=== PATIENT | female | born 1985 | race Caucasian/White ===

== ENCOUNTER 2017-05-28 10:00 | Outpatient (RCR) | payer SELFPAY ==
--- NOTE | 2017-05-01 10:06 | PT INITIAL EVALUATION ---
MEDICAL DIAGNOSIS: Appendiceal Adenocarcinoma TREATMENT DIAGNOSIS: Appendiceal Adenocarcinoma DATE OF ONSET: 04/30/17 SUBJECTIVE: George is a 32 year-old female presenting to oncology rehabilitation following recent change in chemotherapy regimen including Avastin and Irinotecan s/p recent hospitalization. Following discharge from the hospital pt reports that she has been doing much better and has started exercising again and going back to work. Pt reports that she has been doing body weight squats and lifting light weights to maintain fitness. She has also been performing abdominal correction techniques as instructed for diastasis recti following her last surgical intervention. Pt is accompanied by her parents for education and Nurse and Pre Sales Technical Consultant are present. Pt currently reports no pain currently but previously had low back pain onset following hospitalization and decreased activity level. 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 Knee : flexion/ext: B 5/5 Palpation: Pt has a >2cm diastasis recti formation 3 cm above umbilicus Mobility: ECOG Performance Status: Grade 0 Other Objective Findings: FACT-G: PWB: , SWB: , EWB: , FWB: , Total: 100/108 ASSESSMENT: George shows signs and symptoms of diastasis recti following abdominal surgery, but is otherwise doing well at this time with the initiation of new chemotherapy regime for diagnosis of Appendiceal Adenocarcinoma. Physical therapy is indicated for this patient on a monthly basis for regular screening for any changes in condition and modifications of HEP for maintenance of functional status. Short Term Goals In 2 MO pt will maintain FACT-G score of 90 or greater indicating maintenance of well-being with ongoing oncological treatment. In 2 MO pt will maintain ECOG performance status of grade 2 or less for improved outcomes with ongoing oncological intervention and functional mobility. In 4 MO pt will maintain strength in B LE of 4/5 or greater for maintenance of functional status with recreational activities and ADL's. In 4 MO pt will maintain FACT-G score of 90 or greater indicating maintenance of well-being with ongoing oncological treatment. In 4 MO pt will maintain ECOG performance status of grade 2 or less for improved outcomes with ongoing oncological intervention and functional mobility. Patient's Goals Maintain function with ongoing oncological treatment. PLAN: Patient to be seen for Manual Therapy/STM/MET Strengthening/condition Ice/Heat Range of Motion Spinal Stabilization Ultrasound Stretching Iontophoresis Neuromuscular Re-ed Closed Chain Program Electrical Stim Posture/Body mechanics Gait Trg/Balance Trg Biofeedback Home Exercise Program Mech./Manual Traction Therapeutic Activities Pelvic Floor 1x/MO for 4 Months If you have any questions, comments, or concerns about this report or plan, please contact me at . Thank you, Kaitlyn Howe, PT, DPT, CLT MTDD
[~2017-05-28 10:00] MED LIST: CHOL500050 PO; DEX4 PO; DIA5 PO; DOXY25TA54 PO; FLUO-176 PO; FLUO-177 PO; HYDR-4309 PO; IBUP-56 PO; LIDO30CR3 TP; LOPE2CAP15; LORA-1455 PO; ONDA4TAB97 PO; ONDA8TAB94 PO; PRED20TA6 PO; PROC10TA4 PO; SCOT TD; SUMA25TA26 PO
--- NOTE | 2017-05-29 16:23 | PT PLAN OF CARE ---
Physician: FRANCISCO Lock Patient is being seen: 1x/MO Therapist: Kaitlyn Howe, PT, DPT, CLT Medical Diagnosis: Appendiceal Adenocarcinoma Treatment Diagnosis: Appendiceal Adenocarcinoma Date of Onset: 04/30/17 Date of Initial Evaluation: 04/30/17 Date patient was last seen: 05/28/17 Number of treatments: 2 Number of cancellations/No shows: 0 INTERVENTIONS: Manual Therapy/STM/MET Strengthening/condition Ice/Heat Range of Motion Spinal Stabilization Ultrasound Stretching Iontophoresis Neuromuscular Re-ed Closed Chain Program Electrical Stim Posture/Body mechanics Gait Trg/Balance Trg Biofeedback Home Exercise Program Mech./Manual Traction Therapeutic Activities Pelvic Floor GOALS: In 2 MO pt will maintain FACT-G score of 90 or greater indicating maintenance of well-being with ongoing oncological treatment. In 2 MO pt will maintain ECOG performance status of grade 2 or less for improved outcomes with ongoing oncological intervention and functional mobility. In 4 MO pt will maintain strength in B LE of 4/5 or greater for maintenance of functional status with recreational activities and ADL's. In 4 MO pt will maintain FACT-G score of 90 or greater indicating maintenance of well-being with ongoing oncological treatment. In 4 MO pt will maintain ECOG performance status of grade 2 or less for improved outcomes with ongoing oncological intervention and functional mobility. PATIENT'S GOAL: Maintain function with ongoing oncological treatment. Status of Patient's Goals: In Progress Patient Compliance: Excellent Prognosis: Good Reasons for continuing therapy: George shows good maintenance of activity level with ongoing oncological intervention with minimal side-effects. Pt previous back pain is now absent with only lingering stiffness which was reduced with PT intervention. Pt shows good progress with abdominal strengthening program with improved pelvic floor and transverse abdominis activation resulting in decreased pain with lifting and exercise. Further PT to continue to monitor for side-effects and further progress patient to return to prior level of function. ROM: LE ROM WFL Strength: LE MMT: Hip: Flexion: B 5/5, Ext: L 4+/5, R 4/5, Abd/Add: B 5/5. Knee : flexion/ext: B 5/5 Palpation: Pt has a >2cm diastasis recti formation 3 cm above umbilicus Special Tests: FACT-G (Eval): PWB: , SWB: , EWB: , FWB: , Total: 100/108 FACT-G (05/28/17): PWB: , SWB: , EWB: , FWB: , Total: 100 /108 Mobility: ECOG Performance Status: Grade 0 If you have any questions or concerns, please feel free to contact me at . Thank you, Kaitlyn Howe, PT, DPT, CLT MTDD
== END 2017-05-28 18:00 | disposition home or self-care (01) ==
LOC: PT 10:00
PROVIDERS: ATTEND Internal Medicine Medical Oncology
DX: C7A.020 Malignant carcinoid tumor of the appendix (principal)
CPT/HCPCS: 97162

== ENCOUNTER 2017-06-13 10:01 | Emergency (ER) | payer SELFPAY ==
--- NOTE | 2017-06-13 10:08 | ER Report ---
History and Physical Time Seen By MD: 10:02 HPI/LION CHIEF COMPLAINT: Low back pain/ leg weakness HISTORY OF PRESENT ILLNESS: The patient is a 32-year-old female with history of adenocarcinoma currently undergoing chemotherapy last chemotherapy was this past Friday. Last night the patient woke with some lower back discomfort and was unable to get comfortable to fall back asleep. She also noticed some pain down both the left and right thighs. She denies any problems with urinary incontinence or retention. She is able to ambulate. She denies any saddle anesthesia. There is no history of trauma. Patient denies any fevers or chills. REVIEW OF SYSTEMS: Constitutional: No fever, no chills. Gastrointestinal: No abdominal pain, no vomiting. Genitourinary: No hematuria. Musculoskeletal: Lower back pain, numbness and pain down posterior aspect of both thighs. Skin: No rashes. Neurological: No headache. Allergies: Coded Allergies: No Known Drug Allergies (Unverified , 10/09/15) Home Meds Reported Medications Loperamide HCl (Imodium A-D) 2 Mg Capsule Take 4 mg with first watery stool; then take 2 mg every 2 hours during the day and 4 mg every 4 hours at night until no bowel movement 04/30/17 Sumatriptan Succinate (IMITREX) 25 Mg Tablet, 25 MG PO ONCE Y for MIGRAINE 04/30/17 Doxylamine Succinate (UNISOM SLEEP AID) 25 Mg Tablet, 25 MG PO HS Y for INSOMNIA 04/30/17 Diazepam (VALIUM) 5 Mg Tablet, 5 MG PO QHS Y for INSOMNIA, #5 TAB 04/30/17 Lorazepam (ATIVAN) 0.5 Mg Tablet, 0.5 MG PO Q4-6H Y for NAUSEA 04/30/17 Ondansetron Hcl (ZOFRAN) 4 Mg Tablet, 4 MG PO Q8H Y for NAUSEA, TAB 04/30/17 Prochlorperazine Maleate (Compazine) 10 Mg Tablet, 10 MG PO Q6H Y for NAUSEA 04/30/17 Past Medical/Surgical History Patient has an extensive oncology history. She was diagnosed with appendiceal adenocarcinoma. She initially presented on 09/03/2006 with a 6 week history of abdominal bloating, discomfort distention lack of appetite and loose stools. On September [address] scan of the abdomen and pelvis that showed a 12 x 15 x 21 cm complex low-attenuation mass within the lower anterior abdomen and pelvis. 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 CT scan October 11 showed no metastatic disease above the diaphragm at that time. But she did have significant abdominal ascites. October 3012/11/2016. FOLFOX 4 cycles. 12/16/2016 CT of the chest showed scattered pulmonary micronodules. Patient was admitted 02/19/2017 for nits abdominal abscess and status post drain placement. 03/04/2017 patient underwent ileostomy takedown. In CT scan on 04/10/2017 revealed numerous micronodules throughout the lungs. There are development of several Micronodules measuring up to 5 mm. Hx Smoking: No Smoking Status: Never Smoker Hx Alcohol Use: Yes Constitutional Vital Sign - Last 24 Hours 06/13/17 06/13/17 06/13/17 06/13/17 10:07 10:26 10:26 10:27 Temp 98.3 Pulse 79 79 86 Resp 16 B/P (MAP) 116/69 116/69 (85) 124/81 (95) 123/80 (94) Pulse Ox 95 97 96 96 O2 Delivery Room Air Room Air Room Air Room Air 06/13/17 06/13/17 10:40 10:46 Pulse 71 Resp 21 B/P (MAP) 105/83 (90) Pulse Ox 97 Physical Exam General/Constitutional: Patient is awake, alert, nontoxic and in no acute respiratory distress. Head: Normocephalic and atraumatic. Abdomen: Soft, nontender, no guarding or peritoneal signs. Extremities: No gross deformities, No peripheral cyanosis. Able to move all 4 extremities. Patient has 5 out of 5 motor strength with dorsiflexion and plantar flexion of both feet. She has 5 out of 5 strength with extension and retraction of the knee. She also has 5 out of 5 strength with hip flexion bilaterally. Neuro: Alert and oriented X3, Patient has normal gait. Skin: No rashes, skin is warm dry and well perfused. Medical Decision Making Data Points Laboratory Hematology Test 06/13/17 10:07 Urine Color Yellow Urine Clarity Clear Urine pH 5.0 pH (4.8-9.5) Urine Specific [place] 1.021 Urine Protein Negative mg/dL (NEGATIVE) Urine Glucose (UA) Negative mg/dL (NEGATIVE) Urine Ketones Negative mg/dL (NEGATIVE) Urine Blood Negative (NEGATIVE) Urine Nitrite Negative (NEGATIVE) Urine Bilirubin Negative (NEGATIVE) Urine Urobilinogen Negative mg/dL (0.2-1.9) Urine Leukocyte Esterase Trace (NEGATIVE) Urine RBC None /HPF (0-2/HPF) Urine WBC 2 /HPF (0-5/HPF) Urine Squamous Epithelial Cells Many /LPF (</=FEW) Urine Bacteria Negative /HPF (NONE-FEW) Urine Mucus None /HPF (NONE-FEW) Chemistry Test 06/13/17 10:07 Urine Color Yellow Urine Clarity Clear Urine pH 5.0 pH (4.8-9.5) Urine Specific [place] 1.021 Urine Protein Negative mg/dL (NEGATIVE) Urine Glucose (UA) Negative mg/dL (NEGATIVE) Urine Ketones Negative mg/dL (NEGATIVE) Urine Blood Negative (NEGATIVE) Urine Nitrite Negative (NEGATIVE) Urine Bilirubin Negative (NEGATIVE) Urine Urobilinogen Negative mg/dL (0.2-1.9) Urine Leukocyte Esterase Trace (NEGATIVE) Urine RBC None /HPF (0-2/HPF) Urine WBC 2 /HPF (0-5/HPF) Urine Squamous Epithelial Cells Many /LPF (</=FEW) Urine Bacteria Negative /HPF (NONE-FEW) Urine Mucus None /HPF (NONE-FEW) Urinalysis Test 06/13/17 10:07 Urine Color Yellow Urine Clarity Clear Urine pH 5.0 pH (4.8-9.5) Urine Specific [place] 1.021 Urine Protein Negative mg/dL (NEGATIVE) Urine Glucose (UA) Negative mg/dL (NEGATIVE) Urine Ketones Negative mg/dL (NEGATIVE) Urine Blood Negative (NEGATIVE) Urine Nitrite Negative (NEGATIVE) Urine Bilirubin Negative (NEGATIVE) Urine Urobilinogen Negative mg/dL (0.2-1.9) Urine Leukocyte Esterase Trace (NEGATIVE) Urine RBC None /HPF (0-2/HPF) Urine WBC 2 /HPF (0-5/HPF) Urine Squamous Epithelial Cells Many /LPF (</=FEW) Urine Bacteria Negative /HPF (NONE-FEW) Urine Mucus None /HPF (NONE-FEW) EKG/Imaging Imaging FACILITY: [facility] PATIENT NAME: George Alejandro : 1985 MR: [id number] V: [id number] EXAM DATE: ORDERING PHYSICIAN: DOUG LEE TECHNOLOGIST: Location: [facility] Patient: George Alejandro : 1985 Visit/Account:[id number] Date of Sevice: 06/13/2017 EXAMINATION: L SPINE W W/O CONTRAST INDICATION: Pain, breast cancer COMPARISON: CT April 10, 2017 TECHNIQUE: Multiplane MR imaging was performed through the lumbar spine without and with contrast. 15 ml multihance injected. FINDINGS: Vertebral body height: Normal vertebral body heights. Conus position/signal: Normal Marrow signal: Vertebral body metastases at T11, L1, L2, L3 and within the mid to upper sacrum. Small metastasis within the right L4 pedicle and articular pillar. The L2 vertebral body metastasis extends into the right pedicle and articular pillar. The L2 vertebral body is nearly completely filled with a metastasis. The remaining vertebral body metastases are smaller. The sacral metastasis measures up to 7.5 cm craniocaudad by 9.6 cm transverse.. Patchy enhancement within some of these metastases. No soft tissue extension into the canal. Bilateral iliac bone small metastases. Extraspinal structures including psoas muscles/paraspinal soft tissues: Bilateral renal pelvis distention. Other: Small T11-12 disc protrusion contacts the anterior aspect of the cord and results in mild canal narrowing. L1-2: Normal L2-3: Normal. L3-4: Normal L4-5: Mild right foraminal narrowing, otherwise normal. L5 S1: Normal IMPRESSION: 1. Several new metastases involving multiple thoracic and lumbar vertebral bodies and posterior elements, the sacrum and bilateral iliac bones. The largest lumbar vertebral body metastasis is at L2 where the vertebral body is nearly completely filled. The sacral metastasis measures up to 9.6 cm transverse dimension. No malignant soft tissue extension into the canal. No vertebral body wedge compression deformities. 2. Mild T11-12 canal narrowing secondary to small disc protrusion which is partially calcified based on prior CT. Report Dictated By: Yinka Hill MD at 06/13/2017 1:16 PM Report E-Signed By: Yinka Hill MD at 06/13/2017 1:31 PM [id number] FACILITY: [facility] PATIENT NAME: George Alejandro : 1985 MR: [id number] V: [id number] EXAM DATE: ORDERING PHYSICIAN: DOUG LEE TECHNOLOGIST: Location: [facility] Patient: George Alejandro : 1985 Visit/Account:[id number] Date of Sevice: 06/13/2017 PELVIS INDICATION: Pain. History of cancer. COMPARISON: None available FINDINGS: No evidence of fracture, dislocation, or acute osseous abnormality of the bones of the pelvis. No significant degenerative changes. No aggressive osseous lesions identified. Suture material identified within the bilateral lower abdomen. IMPRESSION: 1. No acute osseous abnormality of the pelvis Report Dictated By: Yinka Kimball MD at 06/13/2017 1:22 PM Report E-Signed By: Yinka Kimball MD at 06/13/2017 1:23 PM WSN:[id number] FACILITY: [facility] PATIENT NAME: George Alejandro : 1985 MR: [id number] V: [id number] EXAM DATE: [id number] ORDERING PHYSICIAN: DOUG LEE TECHNOLOGIST: Location: [facility] Patient: George Alejandro : 1985 Visit/Account:[id number] Date of Sevice: 06/13/2017 Lumbar spine Indication: Back pain. Comparison: None available FINDINGS: 4 views of the lumbar spine were obtained. There are 5 lumbar type vertebral bodies. There is no acute osseous or acute alignment abnormality. No evidence of spondylolisthesis or spondylolysis. The vertebral body heights appear well-maintained. IMPRESSION: 1. No acute osseous or acute alignment abnormality of the lumbar spine. Report Dictated By: Yinka Kimball MD at 06/13/2017 1:15 PM Report E-Signed By: Yinka Kimball MD at 06/13/2017 1:22 PM WSN:[id number] ED Course/Re-evaluation ED Course Post void residual was approximately 58 mL. This seems higher than it should be. This could be related to the patient's multiple abdominal surgeries. However we will perform in addition to x-ray of lumbar spine and pelvis an MRI of the lumbar spine. He did attempt to talk to the patient's oncologist Dr. Curry by contacting him at [phone] I did leave a message but did not receive response at this time Re-evaluation 06/13/2017 1:54:06 pm unfortunately MRI demonstrates multiple metastatic lesions to the thoracic lumbar sacral spine along with the iliac wings. This information was relayed to the patient and she was given a copy of her MRI report. I did once again try to get in touch with Dr. Curry at [phone]. There was no response but I did leave a voicemail updating Dr. Curry on the MRI findings. I instructed the patient that she should probably start taking her pain medication that she was prescribed for comfort at nighttime and that she should follow-up with Dr. Curry as soon as possible. Decision to Disposition Date: June 13, 2017 Decision to Disposition Time: 13:55 Depart Departure Latest Vital Signs Vital Signs Date Time Temp Pulse Resp B/P (MAP) Pulse Ox O2 Delivery O2 Flow Rate FiO2 06/13/17 10:46 71 21 97 06/13/17 10:40 105/83 (90) 06/13/17 10:27 Room Air 06/13/17 10:07 98.3 Impression: Primary Impression: Metastasis to bone Condition: Condition Unchanged Disposition: HOME OR SELF-CARE Referrals: ZAINAB LAURENT DNP, SUSTAINABILITY COORDINATOR-BC (PCP) ANSLEY CURRY MD Patient Instructions: Bone Metastasis (ED) Additional Instructions: Take your pain medicine as prescribed as needed for pain. Call and follow up with DOUG Diaz MD June 13, 2017 10:08
[2017-06-13 10:40] VITALS: BP 105/83
[2017-06-13] MEDS ORDERED: GADOBENATE 529MG/1ML 15ML VIAL IVP ONE (11:31)
[2017-06-13] MEDS ORDERED: NS(*) 0.9% 500 ML BAG 500 ML IV PRN (13:00)
--- NOTE | 2017-06-13 13:27 | RADIOLOGY IMAGING REPORT ---
FACILITY: [facility] PATIENT NAME: George Alejandro : 1985 MR: [id number] V: [id number] EXAM DATE: ORDERING PHYSICIAN: DOUG LEE TECHNOLOGIST: Location: [facility] [place] Patient: George Alejandro : 1985 Visit/Account:[id number] Date of Sevice: 06/13/2017 Lumbar spine Indication: Back pain. Comparison: None available FINDINGS: 4 views of the lumbar spine were obtained. There are 5 lumbar type vertebral bodies. There is no acute osseous or acute alignment abnormality. No evidence of spondylolisthesis or spondylolysis. The vertebral body heights appear well-maintained. IMPRESSION: 1. No acute osseous or acute alignment abnormality of the lumbar spine. Report Dictated By: Yinka Kimball MD at 06/13/2017 1:15 PM Report E-Signed By: Yinka Kimball MD at 06/13/2017 1:22 PM WSN:[id number]
--- NOTE | 2017-06-13 13:28 | RADIOLOGY IMAGING REPORT ---
FACILITY: [facility] PATIENT NAME: George Alejandro : 1985 MR: [id number] V: [id number] EXAM DATE: ORDERING PHYSICIAN: DOUG LEE TECHNOLOGIST: Location: [facility] [place] Patient: George Alejandro : 1985 Visit/Account:[id number] Date of Sevice: 06/13/2017 PELVIS INDICATION: Pain. History of cancer. COMPARISON: None available FINDINGS: No evidence of fracture, dislocation, or acute osseous abnormality of the bones of the pelvis. No significant degenerative changes. No aggressive osseous lesions identified. Suture material identified within the bilateral lower abdomen. IMPRESSION: 1. No acute osseous abnormality of the pelvis Report Dictated By: Yinka Kimball MD at 06/13/2017 1:22 PM Report E-Signed By: Yinka Kimball MD at 06/13/2017 1:23 PM WSN:[id number]
--- NOTE | 2017-06-13 13:35 | RADIOLOGY IMAGING REPORT ---
FACILITY: [facility] [place] PATIENT NAME: George Alejandro : 1985 MR: [id number] V: [id number] EXAM DATE: ORDERING PHYSICIAN: DOUG LEE TECHNOLOGIST: [facility] Patient: George Alejandro : 1985 Visit/Account:[id number] Date of Sevice: 06/13/2017 EXAMINATION: L SPINE W W/O CONTRAST INDICATION: Pain, breast cancer COMPARISON: CT April 10, 2017 TECHNIQUE: Multiplane MR imaging was performed through the lumbar spine without and with contrast. 1 5 ml multihance injected. FINDINGS: Vertebral body height: Normal vertebral body heights. Conus position/signal: Normal Marrow signal: Vertebral body metastases at T11, L1, L2, L3 and within the mid to upper sacrum. Smal l metastasis within the right L4 pedicle and articular pillar. The L2 vertebral body metastasis exte nds into the right pedicle and articular pillar. The L2 vertebral body is nearly completely filled w ith a metastasis. The remaining vertebral body metastases are smaller. The sacral metastasis measur es up to 7.5 cm craniocaudad by 9.6 cm transverse.. Patchy enhancement within some of these metastas es. No soft tissue extension into the canal. Bilateral iliac bone small metastases. Extraspinal structures including psoas muscles/paraspinal soft tissues: Bilateral renal pelvis disten tion. Other: Small T11-12 disc protrusion contacts the anterior aspect of the cord and results in mild lonny l narrowing. L1-2: Normal L2-3: Normal. L3-4: Normal L4-5: Mild right foraminal narrowing, otherwise normal. L5 S1: Normal IMPRESSION: 1. Several new metastases involving multiple thoracic and lumbar vertebral bodies and posterior eagle ents, the sacrum and bilateral iliac bones. The largest lumbar vertebral body metastasis is at L2 wh ere the vertebral body is nearly completely filled. The sacral metastasis measures up to 9.6 cm transverse dimension. No malignant soft tissue extension into the canal. No vertebral body wedge compression deformities. 2. Mild T11-12 canal narrowing secondary to small disc protrusion which is partially calcified based on prior CT. Report Dictated By: Yinka Hill MD at 06/13/2017 1:16 PM Report E-Signed By: Yinka Hill MD at 06/13/2017 1:31 PM WSN:[id number]
[2017-06-13] MEDS ORDERED: HEPARIN FLSH (PORT) 500 UN/5ML IVP PRN (14:05)
== END 2017-06-13 14:14 | disposition home or self-care (01) ==
LOC: ER 10:04
DX: C79.51 Secondary malignant neoplasm of bone (principal); C18.1 Malignant neoplasm of appendix
CPT/HCPCS: 72120; 72158; 72170; 81001; 96360; 99284; A9577; J1642; J7040

== ENCOUNTER 2017-06-18 09:15 | Outpatient (RCR) | payer SELFPAY ==
--- NOTE | 2017-02-18 09:56 | Oncology Note ---
Patient called the clinic to report that she is up and [facility] and over a week ago experience flulike symptoms with nausea and vomiting and loose stools in her ostomy and a high fever. Symptoms improved for approximately 2 days and then recurred with a fever. She has been able to eat and drink without difficulty for the last 2 days and her stools have become thicker but she continues to have a fever. Other family members were sick with flulike symptoms as well. She does have a provider that she can see up in [facility]. I have recommended that she go in and see this provider. I feel that she probably needs influenza testing completed as well as a CBC and a CMP and possibly a chest x-ray. Patient may have a bacterial infection. She recently had debulking surgery. She verbalized understanding and will call and make an appointment or go into the emergency room. This provider may call me if he has questions. PAULINO SHULTZ-LENCHO, ONC Feb 18, 2017 09:56
[2017-03-25 13:27] VITALS: BP 113/81
[2017-03-25] MEDS: HEPARIN FLSH (PORT) 500 UN/5ML IVP PRN (13:42)
[2017-03-25] MEDS: LIDOCAINE/SOD BICARB 8.4% SYR ID PRN (13:42)
--- NOTE | 2017-04-08 14:30 | Pharmacy Note ---
Pharmacy Note Date Provider Notified: Apr 09, 2017 Note: Splenectomy Vaccine Review: Initial Splenectomy Vaccines (at least 2 weeks before splenectomy or at least 2 weeks following): -Prevnar 13 -- given 10/28/16 (at [facility]) -HIB --- ACTHib -- given 12/18/16 ([facility]) -Bexsero (Meningococcal B) --given 01/14/17 ([facility]) Booster Vaccines: -Bexsero (Meningococcal B) --- (at least 4 weeks after first Bexsero) -Menactra (Meningococcal) -- (at least 4 weeks after Prevnar 13) --- given 12/18 at ([facility]) -PPSV23 (Pneumococcal) --- (at least 8 weeks after Prevnar 13) --- given at ([facility]) -Menactra (Meningococcal) -- (at least 8 weeks after first Menactra) Lather Apprentice Vaccines: Menactra (meningococcal) - once every 5 years thereafter PPSV23 once every 5 years, 2 doses below age 65 plus one dose after age 65) Vaccines Due at Next Visit: 2nd Bexsero 0.5mL IM once 2nd Menactra 0.5mL IM once Fabiola Noble, PharmD, BCOP FABIOLA NOBLE Apr 08, 2017 14:30
[2017-04-09 13:00] VITALS: BP 120/75
[2017-04-09 14:34] LABS: PLATELET COUNT, AUTOMATED 435 K/uL (150-450)
--- NOTE | 2017-04-09 19:36 | ONCOLOGY FOLLOW UP NOTE ---
EVENT DATE: April 09, 2017 REASON FOR FOLLOWUP 1. Appendiceal adenocarcinoma, peritoneal carcinomatosis, recurrent ascites. 2. Status post surgical debulking and HIPEC therapy. INTERIM HISTORY George returns to clinic for a follow-up visit today. She is accompanied by her mother. For the most part, she reports that things are going pretty well. She does have some ongoing fatigue and bowel irregularity. She has also been experiencing more frequent migraine headaches. Her appetite is good, and her weight has stabilized, although she did expectedly lose some weight with her surgery and HIPEC. She denies fever. She reports no new urinary symptoms. She has had no skin changes. She is here today to discuss plans for chemotherapy now that she has recovered from her surgery and HIPEC. She has had her ostomy reversed. REVIEW OF SYSTEMS Otherwise negative, and all systems were reviewed. ONCOLOGY HISTORY 1. Appendiceal adenocarcinoma. a. Initial presentation on September 03, 2016 with a six-week history of abdominal discomfort, bloating, distention, lack of appetite, and loose stools. b. On September 06, 2016, CT scan of abdomen and pelvis shows a 12 x 15 x 21 cm complex low attenuation mass within the low anterior abdomen and pelvis, and 5 x 7 x 6 cm mass in the posterior midline pelvis; associated with moderately large volume of ascites and left upper quadrant omental caking. 2. Patient is referred to Dr. Yepez at [facility]. a. September 12, 2016: Patient undergoes radical carcinoma debulking per right salpingo-oophorectomy and left ovarian cystectomy, large bowel tumor excision and excision of pelvic floor tumor including aortic bifurcation tumor nodule, total omentectomy, right hemicolectomy, exploratory laparotomy, and lysis of adhesions. b. 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 Biopsy of the tumor nodule at the aortic bifurcation was also positive for metastatic adenocarcinoma. Omentum was involved with metastatic adenocarcinoma. The right hemicolectomy specimen, including appendix, showed evidence of invasive poorly differentiated adenocarcinoma arising from the appendiceal orifice and showing full-thickness invasion of the bowel wall with involvement of cirrhosis. Six of 17 lymph nodes positive for metastatic adenocarcinoma. c. October 11, 2016: CT chest, abdomen and pelvis shows no evidence for metastatic disease above the diaphragm. Postoperative changes were noted from midline laparotomy and appendectomy. No evidence of postoperative complication , bowel obstruction, or bowel leak. Large volume ascites with omental thickening and peritoneal carcinomatosis was noted. Complexity of ascites was diminished, presumably from debulking. Findings potentially consistent with pseudomyxoma peritonei. d. October 30 through December 11, 2016: FOLFOX times four cycles. e. December 16, 2016, CT of chest, abdomen and pelvis: Multiseptate cystic lesion in the pelvis, increased in size since prior exam. Large volume complex ascites and omental thickening/caking otherwise unchanged. Apparent wall thickening of the terminal ileum. Borderline prominent left axillary lymph node , unchanged. Scattered pulmonary micronodules measuring up to 2-3 mm, present prior and unchanged. f. January 06, 2017: Patient undergoes diagnostic laparoscopy, exploratory laparotomy, lysis of adhesions, radical abdominal tumor debulking (including splenectomy, cholecystectomy, wedge gastrectomy, partial resection of right diaphragm, multiple hepatic capsulectomies, mobilization of splenic flexure, segmental resection of splenic flexure of colon, low anterior resection, total abdominal hysterectomy with left salpingo-oophorectomy, bilateral ureterolysis, placement of peritoneal catheters for intraperitoneal chemotherapy). Patient receives hyperthermic intraperitoneal and right intrathoracic chemotherapy with mitomycin C. She undergoes primary coloproctostomy, primary colocolostomy, and diverting loop ileostomy. Pathology reveals evidence of mucinous adenocarcinoma involving all specimens including multiple peritonectomies, left external iliac lymph node and right external iliac lymph node. g. February 19, 2017: Patient is admitted for intraabdominal abscess, status post drain placement and antibiotics. She was subsequently discharged. h. March 04, 2017: Patient undergoes ileostomy takedown. PAST MEDICAL HISTORY 1. Appendiceal adenocarcinoma, as above. 2. Depression, diagnosed in April of 2016. CURRENT MEDICATIONS 1. Fluoxetine 20 mg p.o. daily. 2. Claritin 10 mg p.o. daily. SOCIAL HISTORY She drinks only occasional alcohol. She has never smoked cigarettes. There is no history of illicit drug use. 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 VITAL SIGNS Temperature is 97.1, blood pressure 120/75, heart rate is 65, respirations 16, oxygen saturation is 98% on room air. PHYSICAL EXAMINATION GENERAL: Patient is alert and oriented times three, in no apparent distress sitting in the exam room chair. She is in good spirits, and quite interactive. HEENT: Exam reveals anicteric sclerae. No significant oropharyngeal lesions. NEUROLOGIC: Exam is grossly nonfocal and her gait is normal. EXTREMITIES: Exam reveals no edema, clubbing or cyanosis. SKIN: Exam reveals no concerning rash or lesions. LABORATORY STUDIES Pending today. IMAGING Pending today. ASSESSMENT AND PLAN 1. Appendiceal adenocarcinoma, peritoneal carcinomatosis, status post debulking and HIPEC. I had a good visit with George and her mom today. Overall , George seems to be remarkably well. She does have some ongoing fatigue, but she has no concerning abdominal symptoms today. Her appetite and nutrition seem to be improving steadily, and her weight has stabilized. She is having some migraine headaches. We spent time today discussing next steps. I have reviewed her records from the [facility] ([place], [place]) in detail. The recommendation has been made for her to begin irinotecan with or without bevacizumab, as the response to initial FOLFOX chemotherapy was not everything that we had expected. We will try to avoid infusional 5- fluorouracil. We spent time today discussing irinotecan, including potential risks and toxicities. We also discussed bevacizumab in detail. George is open minded to receiving both medications, and I do want her to go through treatment education as soon as possible. I would want to know from Dr. Jerez that it is okay at this point to have her begin Avastin, as it would be possible to initiate irinotecan by itself, and to add bevacizumab later. In addition, George is planning a trip to [facility], and she would like to start her chemotherapy when she returns. I certainly think this is reasonable. I will plan to see her back in my clinic in about one month, or sooner if there are questions or concerns. Before she gets started on her irinotecan/bevacizumab chemotherapy, we will have her go for a new baseline CT scan of the chest, abdomen and pelvis, and she will go to the lab today to have repeat labs drawn, to include CEA and CA 19-9. 2. Migraine headache. As discussed, I will be reviewing her situation with Pharmacy here, and we will consider a migraine medication that would be reasonable with all of her upcoming medication changes. I spent a total of 30 minutes of time face to face with the patient and her mother today, and 25 minutes of this was spent in direct counseling and coordination of care. [facility]ADISE
[2017-04-10 11:37] VITALS: BP 127/75
--- NOTE | 2017-04-10 16:48 | RADIOLOGY IMAGING REPORT ---
FACILITY: [facility] [place] PATIENT NAME: George Alejandro : 1985 MR: [id number] V: [id number] EXAM DATE: ORDERING PHYSICIAN: ANSLEY CURRY TECHNOLOGIST: Location: [facility] [place] Patient: George Alejandro : 1985 Visit/Account:[id number] Date of Sevice: 04/10/2017 CHEST/AB/PELV W/WO CONTRAST HISTORY: Six month follow-up of appendix surgery ADDITIONAL HISTORY: None. TECHNIQUE: Pre and post administration of IV contrast axial images acquired through the chest abdome n and pelvis during the portal venous phase. Coronal and sagittal reformatting was also performed. D ose Lowering Technique One of the following dose optimization techniques was utilized in the performance of this exam: Autom ated exposure control; adjustment of the mA and/or kV according to the patient's size; or use of an i terative reconstruction technique. Specific details can be referenced in the facility's radiology C T exam operational policy. CONTRAST: 75 mL Isovue-370 COMPARISON: December 16, 2016 FINDINGS: CHEST: Lungs/Pleura: Again noted are numerous micronodules throughout the lungs. Many appear unchanged. T here is a new groundglass nodule in the medial right middle lobe measuring five mm in diameter best s een on image 47 of series 3. There is a small cluster of nodules measuring up to 3 mm in diameter al patrizia the anterior inferior right lower lobe best seen on image 64 and a new 5 x 3 mm nodule posterior inferior right lower lobe best seen on image 72 there is an additional new 3 mm nodule posterior aspe ct left lower lobe best seen on image 46. No evidence of acute appearing infiltrates or pleural effu sions. Mediastinum/lymph nodes: Negative. Heart/vessels: There is an implanted right IJ port with the distal tip in superior vena cava Bones/soft tissues: No aggressive appearing bone lesions are seen ABDOMEN AND PELVIS: Hepatobiliary: Previously noted subtle scalloping of the liver along the medial surface of the infer ior right hepatic lobe appears slightly less prominent Spleen: Surgically removed Pancreas: Negative. Adrenals: Negative. Kidneys ureters and bladder : There is bilateral [id number] hydronephrosis and hydroureters . There is irregular thickening of the bladder wall and an indentation on the posterior wall which may be postoperative in nature. There is also a fluid and air collection just anterior to the bladder m easuring approximately 3.2 x 2.2 cm which may be postoperative as well. Correlation with surgical hi story needed Genitalia: Hysterectomy GI: There is an anastomotic staple line at the rectosigmoid junction related to resection of the di stal colon and anastomosis is also noted adjacent to the cecum additional surgical clips are seen in the left mid abdomen. There is a moderate amount of fecal material in the right-sided the colon whic h can be seen with constipation Vessels/spaces/nodes: There are several minimally prominent mesenteric lymph nodes which have increa sed slightly when compared the prior study. A customer field representative lymph node measures 1 x 0.9 cm. There is mild thickening of the presacral soft tissues which may be postoperative Bones/soft tissues: There are infiltrative changes in the subcutaneous fat in the anterior right low er abdominal wall new since the prior study likely related to postoperative change no aggressive appe aring bone lesions are seen Additional findings: None pertinent. IMPRESSION: There are numerous micronodules throughout the lungs. Many appear unchanged. There has been develop ment of several new nodules however measuring up to 5 mm given patient's history and the interval diya nge increasing pulmonary metastases are of concern There is been surgical resection of the distal colon and hysterectomy since the previous examination in addition to surgical clips adjacent to the cecum. There are several minimally prominent mesenteric lymph nodes the right lower quadrant slightly increa sed w en compared the prior study. Interval development of mild to moderate bilateral hydronephrosis and hydrouretersThere is irregular thickening of the bladder wall in an indentation of the posterior wall which may be postoperative in nature. There is also an air and fluid collection just anterior to the bladder measuring approximate ly 3.2 x 2.2 centers which may be postoperative although correlation with surgical history needed. Report Dictated By: Moni Mcrae MD at 04/10/2017 3:56 PM Report E-Signed By: Moni Mcrae MD at 04/10/2017 4:45 PM WSN:[id number]
[2017-04-30 09:00] VITALS: BP 121/72
[2017-04-30] MEDS: DEXAMETHASONE SOD PHOS 10MG/ML IVP PRN (10:17)
[2017-04-30] MEDS: LIDOCAINE/SOD BICARB 8.4% SYR ID PRN (10:17)
[2017-04-30] MEDS: IRINOTECAN IVPB PRN (11:38)
[2017-04-30] MEDS: SODIUM CHLORIDE 0.9% IVPB PRN (11:38)
[2017-04-30] MEDS: NS 0.9% IVPB PRN (13:38)
[2017-04-30] MEDS: BEVACIZUMAB IVPB PRN (13:38)
[2017-04-30 15:01] VITALS: BP 123/67
[2017-04-30] MEDS: HEPARIN FLSH (PORT) 500 UN/5ML IVP PRN (15:05)
--- NOTE | 2017-05-01 04:17 | ONCOLOGY FOLLOW UP NOTE ---
EVENT DATE: April 30, 2017 REASON FOR FOLLOWUP 1. Appendiceal adenocarcinoma, peritoneal carcinomatosis, recurrent ascites. 2. Status post surgical debulking and HIPEC therapy. INTERIM HISTORY The patient returns to clinic for a followup visit today. She is accompanied by her parents. She reports that things are going pretty well, and minimally different than how she was doing during her most recent visit. She is here to initiate palliative systemic therapy with irinotecan and Avastin. She reports that she has had minimal pain and no fever. She really has not had any nausea. Her bowel habits have been reasonable. She reports no melena or hematochezia. She denies shortness of breath, chest pain and cough. REVIEW OF SYSTEMS Otherwise negative, and all systems were reviewed. ONCOLOGY HISTORY 1. Appendiceal adenocarcinoma. a. Initial presentation on September 03, 2016 with a six-week history of abdominal discomfort, bloating, distention, lack of appetite, and loose stools. b. On September 06, 2016, CT scan of abdomen and pelvis shows a 12 x 15 x 21 cm complex low attenuation mass within the low anterior abdomen and pelvis, and 5 x 7 x 6 cm mass in the posterior midline pelvis; associated with moderately large volume of ascites and left upper quadrant omental caking. 2. Patient is referred to Dr. Yepez at [facility]. a. September 12, 2016: Patient undergoes radical carcinoma debulking per right salpingo-oophorectomy and left ovarian cystectomy, large bowel tumor excision and excision of pelvic floor tumor including aortic bifurcation tumor nodule, total omentectomy, right hemicolectomy, exploratory laparotomy, and lysis of adhesions. b. 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 Biopsy of the tumor nodule at the aortic bifurcation was also positive for metastatic adenocarcinoma. Omentum was involved with metastatic adenocarcinoma. The right hemicolectomy specimen, including appendix, showed evidence of invasive poorly differentiated adenocarcinoma arising from the appendiceal orifice and showing full-thickness invasion of the bowel wall with involvement of cirrhosis. Six of 17 lymph nodes positive for metastatic adenocarcinoma. c. October 11, 2016: CT chest, abdomen and pelvis shows no evidence for metastatic disease above the diaphragm. Postoperative changes were noted from midline laparotomy and appendectomy. No evidence of postoperative complication , bowel obstruction, or bowel leak. Large volume ascites with omental thickening and peritoneal carcinomatosis was noted. Complexity of ascites was diminished, presumably from debulking. Findings potentially consistent with pseudomyxoma peritonei. d. October 30 through December 11, 2016: FOLFOX times four cycles. e. December 16, 2016, CT of chest, abdomen and pelvis: Multiseptate cystic lesion in the pelvis, increased in size since prior exam. Large volume complex ascites and omental thickening/caking otherwise unchanged. Apparent wall thickening of the terminal ileum. Borderline prominent left axillary lymph node , unchanged. Scattered pulmonary micronodules measuring up to 2-3 mm, present prior and unchanged. f. January 06, 2017: Patient undergoes diagnostic laparoscopy, exploratory laparotomy, lysis of adhesions, radical abdominal tumor debulking (including splenectomy, cholecystectomy, wedge gastrectomy, partial resection of right diaphragm, multiple hepatic capsulectomies, mobilization of splenic flexure, segmental resection of splenic flexure of colon, low anterior resection, total abdominal hysterectomy with left salpingo-oophorectomy, bilateral ureterolysis, placement of peritoneal catheters for intraperitoneal chemotherapy). Patient receives hyperthermic intraperitoneal and right intrathoracic chemotherapy with mitomycin C. She undergoes primary coloproctostomy, primary colocolostomy, and diverting loop ileostomy. Pathology reveals evidence of mucinous adenocarcinoma involving all specimens including multiple peritonectomies, left external iliac lymph node and right external iliac lymph node. g. February 19, 2017: Patient is admitted for intraabdominal abscess, status post drain placement and antibiotics. She was subsequently discharged. h. March 04, 2017: Patient undergoes ileostomy takedown. i. CT scan of the chest, abdomen and pelvis on April 10, 2017 reveals numerous micronodules throughout the lungs. Many of these appear unchanged, but there has been development of several new micronodules, measuring up to 5 mm. Surgical resection of the distal colon and hysterectomy are noted. There were several minimally prominent mesenteric lymph nodes in the right lower quadrant that were slightly increased compared to prior. There was also initial development of mild to moderate bilateral hydronephrosis and hydroureters. There was an irregular thickening of the bladder wall and indentation of the posterior wall, which was thought potentially to be postoperative in nature, as well as air and fluid collection just anterior to the bladder measuring approximately 3.2 x 2.2 cm. PAST MEDICAL HISTORY 1. Appendiceal adenocarcinoma, as above. 2. Depression, diagnosed in April of 2016. CURRENT MEDICATIONS 1. Fluoxetine 20 mg p.o. daily. 2. Claritin 10 mg p.o. daily. SOCIAL HISTORY She drinks only occasional alcohol. She has never smoked cigarettes. There is no history of illicit drug use. 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 VITAL SIGNS Temperature 99.2, blood pressure 121/72, heart rate is 92, respirations 16, oxygen saturation is 99% on room air. Weight is 67.4 kg. PHYSICAL EXAMINATION GENERAL: Patient is alert and oriented x3, in no apparent distress, sitting in the exam room chair. She is in good spirits, and quite interactive and pleasant. HEENT: Exam reveals anicteric sclerae. NEUROLOGIC: Exam is grossly nonfocal. EXTREMITIES: Exam reveals no edema, clubbing or cyanosis. SKIN: Exam reveals no concerning rash or lesions. LABORATORY STUDIES Laboratory studies are reviewed per the [facility] record. ASSESSMENT AND PLAN Appendiceal adenocarcinoma, peritoneal carcinomatosis. I had a good visit with the patient and her parents today. Symptomatically, she continues to do remarkably well, all things considered. We spent time today discussing her plan moving forward for initiation of irinotecan and bevacizumab. She will be starting this soon (later this morning). We spent time reviewing her recent CT scan, as well as her laboratory studies. Her counts are certainly at the point where we are ready to begin treatment. Her CEA has gone up, now to 22.8. CA 19 -9 is 380. Otherwise, kidney function, liver function, and electrolytes are normal. The patient does appear to have an element of bilateral hydronephrosis, some of which could have been postoperative in nature. She has no urinary symptoms today. As discussed, we will have her go for a renal ultrasound, either today or in the next few days, to make sure that this has not worsened, and hopefully has resolved. We will be back in touch with her with the results of the ultrasound. I will plan to see her back in one month's time here in my [facility], or sooner if there are questions or concerns. [facility]
--- NOTE | 2017-05-05 14:41 | RADIOLOGY IMAGING REPORT ---
[place] [facility] [place] NAME: George Alejandro : 1985 MR: [id number] V: [id number] EXAM DATE: ORDERING PHYSICIAN: ANSLEY CURRY TECHNOLOGIST: Location: [facility] Patient: George Alejandro : 1985 Visit/Account:[id number] Date of Sevice: 05/05/2017 Renal ultrasound. HISTORY: Hydronephrosis. COMPARISON: CT scan 04/10/2017. Right renal length: 10.5 cm. Right renal cortical thickness: Normal. Right hydronephrosis: Borderline. Right perinephric fluid collections: No. Left renal length: 13.5 cm. Left renal cortical thickness: Normal. Left hydronephrosis: Borderline. Left perinephric fluid collections: No. Bladder prevoid volume: 156 ml. Bladder post void volume: 3 ml. Right ureteral jet: Present. Left ureteral jet: Present. The ureters are obscured. The abdominal aorta and inferior vena cava are partially obscured. A compl ex collection measuring approximately 1.5 cm in diameter is present anterior to the urinary bladder, decreased in size compared to previous. Bilateral hydronephrosis has decreased compared to previous. IMPRESSION: Borderline bilateral hydronephrosis, decreased compared to previous. Small complex collection anterior to the urinary bladder consistent with a resolving hematoma or absc ess, decreased compared to previous. Report Dictated By: Tyler Sullivan MD at 05/05/2017 2:23 PM Report E-Signed By: Tyler Sullivan MD at 05/05/2017 2:35 PM WSN:[id number]
[2017-05-07] MEDS: LIDOCAINE/SOD BICARB 8.4% SYR ID PRN (09:18)
[2017-05-07] MEDS: HEPARIN FLSH (PORT) 500 UN/5ML IVP PRN (09:18)
[2017-05-07 09:24] VITALS: BP 112/87
[2017-05-07 09:25] LABS: PLATELET COUNT, AUTOMATED 480 K/uL (150-450)
[2017-05-14 09:11] VITALS: BP 120/62
[2017-05-14] MEDS: DEXAMETHASONE SOD PHOS 10MG/ML IVP PRN (10:17)
[2017-05-14] MEDS: LIDOCAINE/SOD BICARB 8.4% SYR ID PRN (10:20)
[2017-05-14] MEDS: HEPARIN FLSH (PORT) 500 UN/5ML IVP PRN (10:21)
[2017-05-14] MEDS: PALONOSETRON HCL IVP PRN (10:47)
[2017-05-14] MEDS: FOSAPREPITANT DIM 150 MG/5 ML 150 MG in NS(*) 0.9% 250 ML BAG 245 ML IVPB PRN (10:48)
[2017-05-14] MEDS: IRINOTECAN IVPB PRN (11:29)
[2017-05-14] MEDS: SODIUM CHLORIDE 0.9% IVPB PRN (11:29)
[2017-05-14] MEDS: BEVACIZUMAB IVPB PRN (13:15)
[2017-05-14] MEDS: NS 0.9% IVPB PRN (13:15)
[2017-05-14 14:03] VITALS: BP 132/62
[2017-05-14] MEDS: NS(*) 0.9% 500 ML BAG 500 ML IV PRN (14:07)
[2017-05-21 09:04] VITALS: BP 116/82
[2017-05-21] MEDS: LIDOCAINE/SOD BICARB 8.4% SYR ID PRN (09:19)
[2017-05-21] MEDS: HEPARIN FLSH (PORT) 500 UN/5ML IVP PRN ×2 (09:19→09:21)
[2017-05-26 13:12] VITALS: BP 124/82
[2017-05-28 09:19] VITALS: BP 136/70
[2017-05-28] MEDS: LIDOCAINE/SOD BICARB 8.4% SYR ID PRN (10:00)
[2017-05-28] MEDS: NS(*) 0.9% 500 ML BAG 500 ML IV PRN (10:01)
[2017-05-28] MEDS: PALONOSETRON HCL IVP PRN (11:01)
[2017-05-28] MEDS: DEXAMETHASONE SOD PHOS 10MG/ML IVP PRN (11:02)
[2017-05-28] MEDS: FOSAPREPITANT DIM 150 MG/5 ML 150 MG in NS(*) 0.9% 250 ML BAG 245 ML IVPB PRN (11:22)
[2017-05-28] MEDS: SODIUM CHLORIDE 0.9% IVPB PRN (12:00)
[2017-05-28] MEDS: IRINOTECAN IVPB PRN (12:00)
[2017-05-28] MEDS: HEPARIN FLSH (PORT) 500 UN/5ML IVP PRN (15:00)
--- NOTE | 2017-05-31 15:30 | ONCOLOGY FOLLOW UP NOTE ---
EVENT DATE: May 26, 2017 [CHIEF COMPLAINT/REASON FOR VISIT Ms. Alejandro is a pleasant 32-year-old female with metastatic appendiceal carcinoma , currently on bevacizumab and irinotecan palliative chemotherapy, here for a cycle visit and followup. HISTORY OF PRESENT ILLNESS Ms. Alejandro is a pleasant patient of Dr. Alston and Dr. Hubbard, who presents for a cycle visit prior to cycle three day one of bevacizumab and irinotecan. Overall she is tolerating therapy well. Her blood pressure is normal as is her pulse rate. She is not having problems with excess diarrhea or other major complications from this chemotherapy. Overall she is tolerating it well. She sees Dr. Hubbard with the next cycle and will be due for surveillance imaging coming up later in the spring. Overall she is feeling well. We reviewed her history in great detail and discussed her goals of care. She and her mother are ready to move forward with cycle three of therapy. We also discussed medical leave for a family member so that she can go on a vacation with George. This is her [id number]. I think this is an excellent plan and I fully support this. Mrs. Alejandro and her family have a complete understanding that this is palliative in nature and that this disease will one day end her life. We are hoping to do everything we can to maintain her quality of life as well as the length of her life. ONCOLOGY HISTORY 1. Appendiceal adenocarcinoma. a. Initial presentation on September 03, 2016 with a six-week history of abdominal discomfort, bloating, distention, lack of appetite, and loose stools. b. On September 06, 2016, CT scan of abdomen and pelvis shows a 12 x 15 x 21 cm complex low attenuation mass within the low anterior abdomen and pelvis, and 5 x 7 x 6 cm mass in the posterior midline pelvis; associated with moderately large volume of ascites and left upper quadrant omental caking. 2. Patient is referred to Dr. Yepez at [facility]. a. September 12, 2016: Patient undergoes radical carcinoma debulking per right salpingo-oophorectomy and left ovarian cystectomy, large bowel tumor excision and excision of pelvic floor tumor including aortic bifurcation tumor nodule, total omentectomy, right hemicolectomy, exploratory laparotomy, and lysis of adhesions. b. 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 Biopsy of the tumor nodule at the aortic bifurcation was also positive for metastatic adenocarcinoma. Omentum was involved with metastatic adenocarcinoma. The right hemicolectomy specimen, including appendix, showed evidence of invasive poorly differentiated adenocarcinoma arising from the appendiceal orifice and showing full-thickness invasion of the bowel wall with involvement of cirrhosis. Six of 17 lymph nodes positive for metastatic adenocarcinoma. c. October 11, 2016: CT chest, abdomen and pelvis shows no evidence for metastatic disease above the diaphragm. Postoperative changes were noted from midline laparotomy and appendectomy. No evidence of postoperative complication , bowel obstruction, or bowel leak. Large volume ascites with omental thickening and peritoneal carcinomatosis was noted. Complexity of ascites was diminished, presumably from debulking. Findings potentially consistent with pseudomyxoma peritonei. d. October 30 through December 11, 2016: FOLFOX times four cycles. e. December 16, 2016, CT of chest, abdomen and pelvis: Multiseptate cystic lesion in the pelvis, increased in size since prior exam. Large volume complex ascites and omental thickening/caking otherwise unchanged. Apparent wall thickening of the terminal ileum. Borderline prominent left axillary lymph node , unchanged. Scattered pulmonary micronodules measuring up to 2-3 mm, present prior and unchanged. f. January 06, 2017: Patient undergoes diagnostic laparoscopy, exploratory laparotomy, lysis of adhesions, radical abdominal tumor debulking (including splenectomy, cholecystectomy, wedge gastrectomy, partial resection of right diaphragm, multiple hepatic capsulectomies, mobilization of splenic flexure, segmental resection of splenic flexure of colon, low anterior resection, total abdominal hysterectomy with left salpingo-oophorectomy, bilateral ureterolysis, placement of peritoneal catheters for intraperitoneal chemotherapy). Patient receives hyperthermic intraperitoneal and right intrathoracic chemotherapy with mitomycin C. She undergoes primary coloproctostomy, primary colocolostomy, and diverting loop ileostomy. Pathology reveals evidence of mucinous adenocarcinoma involving all specimens including multiple peritonectomies, left external iliac lymph node and right external iliac lymph node. g. February 19, 2017: Patient is admitted for intraabdominal abscess, status post drain placement and antibiotics. She was subsequently discharged. h. March 04, 2017: Patient undergoes ileostomy takedown. i. CT scan of the chest, abdomen and pelvis on April 10, 2017 reveals numerous micronodules throughout the lungs. Many of these appear unchanged, but there has been development of several new micronodules, measuring up to 5 mm. Surgical resection of the distal colon and hysterectomy are noted. There were several minimally prominent mesenteric lymph nodes in the right lower quadrant that were slightly increased compared to prior. There was also initial development of mild to moderate bilateral hydronephrosis and hydroureters. There was an irregular thickening of the bladder wall and indentation of the posterior wall, which was thought potentially to be postoperative in nature, as well as air and fluid collection just anterior to the bladder measuring approximately 3.2 x 2.2 cm. PAST MEDICAL HISTORY 1. Appendiceal adenocarcinoma, as above. 2. Depression, diagnosed in April of 2016. REVIEW OF SYSTEMS CONSTITUTIONAL: No fevers, chills, significant weight change. HEENT: No headache or vision changes. CARDIOVASCULAR: No chest pain, dyspnea on exertion or edema. RESPIRATORY: No shortness of breath, wheeze, cough. GASTROINTESTINAL: No nausea, vomiting currently. No significant diarrhea. GENITOURINARY: No dysuria or hematuria. MUSCULOSKELETAL: No significant weakness or joint pain. PSYCHIATRIC: No anxiety or depression. NEUROLOGIC: No concerning numbness. HEMATOLOGIC: No bruising or bleeding issues. The remainder of the 14-point review of systems is otherwise negative. PHYSICAL EXAMINATION VITAL SIGNS: Blood pressure 124/82, pulse 86, respiratory rate 16, temperature 97.7 Fahrenheit, oxygen saturation 97% on room air. Weight 86.1 kg. Pain 0/10 , fatigue 0/10. GENERAL: In stable condition, resting comfortably in the chair. CARDIOVASCULAR: Regular rate and rhythm. LUNGS: Clear. ABDOMEN: Palpable metastatic disease I believe. PSYCHIATRIC: Normal mood and affect. The patient is in a very good place in terms of understanding her prognosis in my opinion. Full physical exam otherwise deferred to amount of time spent in counseling and coordination of care. IMPRESSION AND PLAN Ms. Alejandro is a pleasant 32-year-old female with the following: Metastatic appendiceal carcinoma, currently about to begin cycle three of bevacizumab and irinotecan. I had an excellent meeting with her today reviewing her history and discussing side effects. No changes to her regimen currently. She is ready to proceed with cycle three. She will follow up with Dr. Hubbard for cycle four. Billing: Return visit level 4. Total time 30 minutes, counseling time 20. MTDD
[2017-06-04] MEDS: LIDOCAINE/SOD BICARB 8.4% SYR ID PRN (09:31)
[2017-06-04] MEDS: HEPARIN FLSH (PORT) 500 UN/5ML IVP PRN (09:31)
[2017-06-04 09:53] VITALS: BP 124/81
[2017-06-04 12:02] VITALS: BP 121/81
--- NOTE | 2017-06-04 19:03 | ONCOLOGY FOLLOW UP NOTE ---
EVENT DATE: June 04, 2017 REASON FOR FOLLOWUP 1. Appendiceal adenocarcinoma, peritoneal carcinomatosis, recurrent ascites. 2. Status post surgical debulking and HIPEC therapy. INTERIM HISTORY George returns to clinic for a follow-up visit today. Since her last visit here , she reports that she has been feeling pretty good in general. Chemotherapy tends to be fairly rough for the first couple of days of each cycle, but she feels that symptoms from her past surgery have finally faded to the point that they are less than bothersome. She reports no fever. She denies abdominal pain. She has had some slight bowel irregularity, but nothing troublesome. She reports no new urinary symptoms. She did have some problems with nausea at the time of her last chemotherapy start, and felt that she was going to vomit when [facility]. She is curious if any changes can be made to her premedications. She reports that she will be taking a trip to [place] after this cycle, and that she will be missing her normally scheduled cycle five, as she will be gone for a week. REVIEW OF SYSTEMS Otherwise negative, and all systems were reviewed. ONCOLOGY HISTORY 1. Appendiceal adenocarcinoma. a. Initial presentation on September 03, 2016 with a six-week history of abdominal discomfort, bloating, distention, lack of appetite, and loose stools. b. On September 06, 2016, CT scan of abdomen and pelvis shows a 12 x 15 x 21 cm complex low attenuation mass within the low anterior abdomen and pelvis, and 5 x 7 x 6 cm mass in the posterior midline pelvis; associated with moderately large volume of ascites and left upper quadrant omental caking. 2. Patient is referred to Dr. Yepez at [facility]. a. September 12, 2016: Patient undergoes radical carcinoma debulking per right salpingo-oophorectomy and left ovarian cystectomy, large bowel tumor excision and excision of pelvic floor tumor including aortic bifurcation tumor nodule, total omentectomy, right hemicolectomy, exploratory laparotomy, and lysis of adhesions. b. 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 Biopsy of the tumor nodule at the aortic bifurcation was also positive for metastatic adenocarcinoma. Omentum was involved with metastatic adenocarcinoma. The right hemicolectomy specimen, including appendix, showed evidence of invasive poorly differentiated adenocarcinoma arising from the appendiceal orifice and showing full-thickness invasion of the bowel wall with involvement of cirrhosis. Six of 17 lymph nodes positive for metastatic adenocarcinoma. c. October 11, 2016: CT chest, abdomen and pelvis shows no evidence for metastatic disease above the diaphragm. Postoperative changes were noted from midline laparotomy and appendectomy. No evidence of postoperative complication , bowel obstruction, or bowel leak. Large volume ascites with omental thickening and peritoneal carcinomatosis was noted. Complexity of ascites was diminished, presumably from debulking. Findings potentially consistent with pseudomyxoma peritonei. d. October 30 through December 11, 2016: FOLFOX times four cycles. e. December 16, 2016, CT of chest, abdomen and pelvis: Multiseptate cystic lesion in the pelvis, increased in size since prior exam. Large volume complex ascites and omental thickening/caking otherwise unchanged. Apparent wall thickening of the terminal ileum. Borderline prominent left axillary lymph node , unchanged. Scattered pulmonary micronodules measuring up to 2-3 mm, present prior and unchanged. f. January 06, 2017: Patient undergoes diagnostic laparoscopy, exploratory laparotomy, lysis of adhesions, radical abdominal tumor debulking (including splenectomy, cholecystectomy, wedge gastrectomy, partial resection of right diaphragm, multiple hepatic capsulectomies, mobilization of splenic flexure, segmental resection of splenic flexure of colon, low anterior resection, total abdominal hysterectomy with left salpingo-oophorectomy, bilateral ureterolysis, placement of peritoneal catheters for intraperitoneal chemotherapy). Patient receives hyperthermic intraperitoneal and right intrathoracic chemotherapy with mitomycin C. She undergoes primary coloproctostomy, primary colocolostomy, and diverting loop ileostomy. Pathology reveals evidence of mucinous adenocarcinoma involving all specimens including multiple peritonectomies, left external iliac lymph node and right external iliac lymph node. g. February 19, 2017: Patient is admitted for intraabdominal abscess, status post drain placement and antibiotics. She was subsequently discharged. h. March 04, 2017: Patient undergoes ileostomy takedown. i. CT scan of the chest, abdomen and pelvis on April 10, 2017 reveals numerous micronodules throughout the lungs. Many of these appear unchanged, but there has been development of several new micronodules, measuring up to 5 mm. Surgical resection of the distal colon and hysterectomy are noted. There were several minimally prominent mesenteric lymph nodes in the right lower quadrant that were slightly increased compared to prior. There was also initial development of mild to moderate bilateral hydronephrosis and hydroureters. There was an irregular thickening of the bladder wall and indentation of the posterior wall, which was thought potentially to be postoperative in nature, as well as air and fluid collection just anterior to the bladder measuring approximately 3.2 x 2.2 cm. j. Ongoing palliative irinotecan and Avastin. PAST MEDICAL HISTORY 1. Appendiceal adenocarcinoma, as above. 2. Depression, diagnosed in April of 2016. CURRENT MEDICATIONS 1. Fluoxetine 20 mg p.o. daily. 2. Claritin 10 mg p.o. daily. 3. Loperamide p.r.n. 4. Imitrex p.r.n. 5. Unisom p.r.n. 6. Diazepam p.r.n. 7. Ativan p.r.n. 8. Ondansetron p.r.n. 9. Compazine p.r.n. SOCIAL HISTORY She drinks only occasional alcohol. She has never smoked cigarettes. There is no history of illicit drug use. 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 VITAL SIGNS Temperature 98.2, blood pressure 124/81, pulse 95, respirations 16, oxygen saturation is 98% on room air. Weight is 67.9 kg. PHYSICAL EXAMINATION GENERAL: Patient is alert and oriented times three, in no apparent distress, sitting in the exam room chair. She appears healthy, and she is quite interactive and pleasant. HEENT: Exam reveals anicteric sclerae. NEUROLOGIC: Exam is grossly nonfocal and her gait is normal. EXTREMITIES: Exam reveals no edema, clubbing or cyanosis. SKIN: Exam reveals no concerning rash or lesions. LABORATORY STUDIES Reviewed per the [facility] record. ASSESSMENT AND PLAN Appendiceal adenocarcinoma, peritoneal carcinomatosis. George seems to be faring pretty well with ongoing irinotecan and Avastin. She has no overt signs or symptoms to suggest progression of disease, and in fact her quality of life has improved over the past month or so. She has no symptoms to suggest abnormal bleeding, and nothing to suggest thrombosis. We spent time discussing symptom management today. We will add a dose of intravenous lorazepam to her premedications, given her report of nausea on the day of chemotherapy. Otherwise, she is managing her symptoms very well at home. We discussed her upcoming trip to [place]. She will delay her cycle five for one to two weeks, and I will plan to see her back in clinic in one month after a repeat CT scan of the chest, abdomen and pelvis. Hopefully, we will see evidence of response at that time. The patient had several additional questions for me today, and I believe I answered all of her questions to her satisfaction. [facility]
[2017-06-11 09:16] VITALS: BP 117/75
[2017-06-11] MEDS: LIDOCAINE/SOD BICARB 8.4% SYR ID PRN (09:39)
[2017-06-11] MEDS: NS(*) 0.9% 500 ML BAG 500 ML IV PRN (09:39)
[2017-06-11] MEDS: DEXAMETHASONE SOD PHOS 10MG/ML IVP PRN (10:52)
[2017-06-11] MEDS: PALONOSETRON HCL IVP PRN (10:53)
[2017-06-11] MEDS: FOSAPREPITANT DIM 150 MG/5 ML 150 MG in NS(*) 0.9% 250 ML BAG 245 ML IVPB PRN (11:14)
[2017-06-11] MEDS: IRINOTECAN IVPB PRN (12:13)
[2017-06-11] MEDS: SODIUM CHLORIDE 0.9% IVPB PRN (12:13)
[2017-06-11] MEDS: HEPARIN FLSH (PORT) 500 UN/5ML IVP PRN (14:51)
[2017-06-11 14:55] VITALS: BP 137/88
[2017-06-16 07:34] VITALS: BP 110/86
[2017-06-16] MEDS: LIDOCAINE/SOD BICARB 8.4% SYR ID PRN (07:46)
--- NOTE | 2017-06-16 10:56 | RADIOLOGY IMAGING REPORT ---
FACILITY: [facility] [place] PATIENT NAME: George Alejandro : 1985 MR: [id number] V: [id number] EXAM DATE: ORDERING PHYSICIAN: ANSLEY CURRY TECHNOLOGIST: Location: [facility] Patient: George Alejandro : 1985 Visit/Account:[id number] Date of Sevice: 06/16/2017 CHEST/AB/PELV W/WO CONTRAST HISTORY: Appendiceal cancer ADDITIONAL HISTORY: None. TECHNIQUE: Pre and post administration of IV contrast axial images acquired through the chest abdome n and pelvis during the portal venous phase. Coronal and sagittal reformatting was also performed. D ose Lowering Technique One of the following dose optimization techniques was utilized in the performance of this exam: Autom ated exposure control; adjustment of the mA and/or kV according to the patient's size; or use of an i terative reconstruction technique. Specific details can be referenced in the facility's radiology C T exam operational policy. CONTRAST: 75 mL Isovue-370 COMPARISON: April 10, 2017 FINDINGS: CHEST: Lungs/Pleura: Again noted are numerous micronodules throughout the lungs which appear relatively unc hanged. No new nodules are identified. There is no evidence of acute appearing infiltrates or pleur al effusions. Mediastinum/lymph nodes: Negative. Heart/vessels: Implanted right IJ port is in good position with the distal tip in superior vena cava Bones/soft tissues: Subtle lucency at T11 and T12 are consistent with the MR findings of extensive o sseous metastases. These were better depicted on the recent MR of the lumbar spine ABDOMEN AND PELVIS: Hepatobiliary: There is mild periportal edema which can sometimes be seen with IV hydration . No e vidence of portal venous thrombosis. There are postsurgical changes from a cholecystectomy Spleen: Postsurgical changes from splenectomy Pancreas: Negative. Adrenals: Negative. Kidneys ureters and bladder : There is mild pyelocaliectasis bilaterally although improved when fidel red to the prior study. Irregular bladder wall thickening appears partially improved as well. Genitalia: Hysterectomy GI: Anastomosis is again seen rectosigmoid junction with an additional anastomosis adjacent to the cecum. Numerous surgical clips also seen in the left mid abdomen similar to the prior study Vessels/spaces/nodes: Thickening of the presacral soft tissues appears less prominent. Several mild ly prominent mesenteric lymph nodes in the lower abdomen appear relatively unchanged Bones/soft tissues: Extensive metastases throughout the thoracolumbar spine sacrum and pelvis are be tter seen on recent MR Additional findings: None pertinent. IMPRESSION: Numerous micronodules. The lungs appear stable when compared to the prior study. No new nodules are identified. Extensive osseous metastases throughout the thoracolumbar spine sacrum and pelvis for better seen on the recent MR Postsurgical changes from a cholecystectomy splenectomy and hysterectomy. Postsurgical changes at th e rectosigmoid junction, cecum and left mid abdomen also containing noted There is mild pyelocaliectasis bilaterally although improved when compared to the prior study. Irreg ular bladder wall thickening appears partially improved as does the presacral soft tissue thickening which could be postoperative. Several mildly prominent mesenteric lymph nodes lower abdomen appear stable Report Dictated By: Moni Mcrae MD at 06/16/2017 9:48 AM Report E-Signed By: Moni Mcrae MD at 06/16/2017 10:53 AM WSN:[id number]
[2017-06-16] MEDS: HEPARIN FLSH (PORT) 500 UN/5ML IVP PRN (11:00)
[~2017-06-18] VITALS: Ht 171.2 cm; Wt 70.0 kg
[~2017-06-18 09:15] MED LIST changes: +ALTEPLASE RECOMB 2 MG VIAL IVP PRN; +ATROPINE SUL 1 MG/ML VIAL IVP PRN; +BEVACIZUMAB IVPB PRN; +DEXTROSE 5%(*) 100 ML BAG 100 ML IVPB PRN; +FOSAPREPITANT DIM 150 MG/5 ML 150 MG in NS(*) 0.9% 250 ML BAG 245 ML IVPB ONE; +IOPAMIDOL 76% 75 ML INFUS BTL 75 ML ONE; +LORazepam 2 MG/ML VIAL IVP PRN; +MENING VAC A,C,Y,W-135 DIP/PF 4 MCG/0.5 ML VIAL IM ONE; +NS 0.9% IVPB PRN; +NS(*) 0.9% 100 ML BAG 100 ML IVPB PRN; +PALONOSETRON 0.25 MG/5 ML VIAL IVP ONE; +WATER STERILE 10 ML VIAL IVP PRN; +[UNRECOGNIZED DRUG - OTHER] IM ONE
[2017-06-18] MEDS: LIDOCAINE/SOD BICARB 8.4% SYR ID PRN (09:49)
[2017-06-18] MEDS: HEPARIN FLSH (PORT) 500 UN/5ML IVP PRN (09:49)
[2017-06-18 10:16] LABS: PLATELET COUNT, AUTOMATED 522 K/uL (150-450)
[2017-06-18 10:22] VITALS: BP 118/79
[2017-06-18 11:00] VITALS: BP 125/79
[2017-06-18] MEDS ORDERED: DEX4 FT (11:05)
[2017-06-18] MEDS ORDERED: DOCU-416 PO (11:05)
[2017-06-18] MEDS ORDERED: GABA-549 PO (11:05)
[2017-06-18] MEDS ORDERED: OXYC-823 PO (11:05)
--- NOTE | 2017-06-18 18:05 | ONCOLOGY FOLLOW UP NOTE ---
EVENT DATE: June 18, 2017 REASON FOR FOLLOWUP 1. Appendiceal adenocarcinoma, peritoneal carcinomatosis, recurrent ascites. 2. Status post surgical debulking and HIPEC therapy. INTERIM HISTORY George returns to clinic for a follow-up visit today. She is accompanied by her mother. She reports that she had recently presented to the emergency department with complaints of back and pelvic pain. She had undergone an MRI at that time that showed concern for bony metastatic disease. She has since undergone a CT scan, as well. She reports that her most recent chemotherapy cycle was actually quite a bit easier, and she was happy about that. Her pain has improved significantly from the time of her presentation. She has been taking dexamethasone and gabapentin for this purpose. She reports no fever. She denies shortness of breath, chest pain, cough. Her appetite has been pretty good. Her weight has been fairly stable, and she reports no new bowel or bladder symptoms. REVIEW OF SYSTEMS Otherwise negative, and all systems were reviewed. ONCOLOGY HISTORY 1. Appendiceal adenocarcinoma. a. Initial presentation on September 03, 2016 with a six-week history of abdominal discomfort, bloating, distention, lack of appetite, and loose stools. b. On September 06, 2016, CT scan of abdomen and pelvis shows a 12 x 15 x 21 cm complex low attenuation mass within the low anterior abdomen and pelvis, and 5 x 7 x 6 cm mass in the posterior midline pelvis; associated with moderately large volume of ascites and left upper quadrant omental caking. 2. Patient is referred to Dr. Yepez at [facility]. a. September 12, 2016: Patient undergoes radical carcinoma debulking per right salpingo-oophorectomy and left ovarian cystectomy, large bowel tumor excision and excision of pelvic floor tumor including aortic bifurcation tumor nodule, total omentectomy, right hemicolectomy, exploratory laparotomy, and lysis of adhesions. b. 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 Biopsy of the tumor nodule at the aortic bifurcation was also positive for metastatic adenocarcinoma. Omentum was involved with metastatic adenocarcinoma. The right hemicolectomy specimen, including appendix, showed evidence of invasive poorly differentiated adenocarcinoma arising from the appendiceal orifice and showing full-thickness invasion of the bowel wall with involvement of cirrhosis. Six of 17 lymph nodes positive for metastatic adenocarcinoma. c. October 11, 2016: CT chest, abdomen and pelvis shows no evidence for metastatic disease above the diaphragm. Postoperative changes were noted from midline laparotomy and appendectomy. No evidence of postoperative complication , bowel obstruction, or bowel leak. Large volume ascites with omental thickening and peritoneal carcinomatosis was noted. Complexity of ascites was diminished, presumably from debulking. Findings potentially consistent with pseudomyxoma peritonei. d. October 30 through December 11, 2016: FOLFOX times four cycles. e. December 16, 2016, CT of chest, abdomen and pelvis: Multiseptate cystic lesion in the pelvis, increased in size since prior exam. Large volume complex ascites and omental thickening/caking otherwise unchanged. Apparent wall thickening of the terminal ileum. Borderline prominent left axillary lymph node , unchanged. Scattered pulmonary micronodules measuring up to 2-3 mm, present prior and unchanged. f. January 06, 2017: Patient undergoes diagnostic laparoscopy, exploratory laparotomy, lysis of adhesions, radical abdominal tumor debulking (including splenectomy, cholecystectomy, wedge gastrectomy, partial resection of right diaphragm, multiple hepatic capsulectomies, mobilization of splenic flexure, segmental resection of splenic flexure of colon, low anterior resection, total abdominal hysterectomy with left salpingo-oophorectomy, bilateral ureterolysis, placement of peritoneal catheters for intraperitoneal chemotherapy). Patient receives hyperthermic intraperitoneal and right intrathoracic chemotherapy with mitomycin C. She undergoes primary coloproctostomy, primary colocolostomy, and diverting loop ileostomy. Pathology reveals evidence of mucinous adenocarcinoma involving all specimens including multiple peritonectomies, left external iliac lymph node and right external iliac lymph node. g. February 19, 2017: Patient is admitted for intraabdominal abscess, status post drain placement and antibiotics. She was subsequently discharged. h. March 04, 2017: Patient undergoes ileostomy takedown. i. CT scan of the chest, abdomen and pelvis on April 10, 2017 reveals numerous micronodules throughout the lungs. Many of these appear unchanged, but there has been development of several new micronodules, measuring up to 5 mm. Surgical resection of the distal colon and hysterectomy are noted. There were several minimally prominent mesenteric lymph nodes in the right lower quadrant that were slightly increased compared to prior. There was also initial development of mild to moderate bilateral hydronephrosis and hydroureters. There was an irregular thickening of the bladder wall and indentation of the posterior wall, which was thought potentially to be postoperative in nature, as well as air and fluid collection just anterior to the bladder measuring approximately 3.2 x 2.2 cm. j. Ongoing palliative irinotecan and Avastin. PAST MEDICAL HISTORY 1. Appendiceal adenocarcinoma, as above. 2. Depression, diagnosed in April of 2016. CURRENT MEDICATIONS 1. Fluoxetine 20 mg p.o. daily. 2. Claritin 10 mg p.o. daily. 3. Loperamide p.r.n. 4. Imitrex p.r.n. 5. Unisom p.r.n. 6. Diazepam p.r.n. 7. Ativan p.r.n. 8. Ondansetron p.r.n. 9. Compazine p.r.n. 10. Gabapentin 300 mg p.o. daily. 11. Dexamethasone 4 mg p.o. b.i.d. 12. Oxycodone 5 mg p.o. q.6 hours p.r.n. 13. Colace p.r.n. SOCIAL HISTORY She drinks only occasional alcohol. She has never smoked cigarettes. There is no history of illicit drug use. 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 VITAL SIGNS Temperature 97.3, blood pressure 125/79, heart rate is 66, respirations 16, oxygen saturation is 97% on room air. Weight is 70 kg. PHYSICAL EXAMINATION GENERAL: Patient is alert and oriented times three, in no apparent distress, sitting in the exam room chair. She is in good spirits and quite pleasant. HEENT: Exam reveals anicteric sclerae. NEUROLOGIC: Exam is grossly nonfocal and her gait is normal. EXTREMITIES: Exam reveals no edema, clubbing or cyanosis. SKIN: Exam reveals no concerning rash or lesion. LABORATORY STUDIES Reviewed per the [facility] record. IMAGING Please see history of present illness. ASSESSMENT AND PLAN Appendiceal adenocarcinoma, peritoneal carcinomatosis, new bony metastatic disease. I had a difficult discussion with George and her mother today. Although George remains in good spirits, and always positive, we discussed the implications of her recent MRI and CT findings. She now has very strong evidence of bony metastatic disease. As discussed, this is a rather atypical behavior for this particular type of cancer. I have already reviewed her situation with Dr. Carrasco at the [facility]. We were able to discuss the situation with Dr. Carrasco during our clinic visit today, as well, as he kindly joined us by phone. There is a possibility that George is eligible for a clinical trial that is currently open at the [facility]. George has expressed great interest in this. She will plan to hear back from Dr. Carrasco and his team about logistics for the trial. In the meantime , it does seem that her pain control is now quite good. She would like to go down on the dexamethasone dose, and I think she can move to daily dosing. I will refill her oxycodone today, but she uses this quite sparingly because it makes her very tired. The patient and her mother had several questions for me today, and I believe I answered all their questions to their satisfaction. Her chemotherapy will be stopped now. I will tentatively plan to see her back in two months or so, depending on plans with clinical trial and followup at the [facility]. MTDD
== END 2017-06-23 ==
LOC: SPU 09:15
PROVIDERS: ATTEND Internal Medicine Medical Oncology
DX: Z51.11 Encounter for antineoplastic chemotherapy (principal); C18.1 Malignant neoplasm of appendix; C78.6 Secondary malignant neoplasm of retroperitoneum and peritoneum; C79.51 Secondary malignant neoplasm of bone; R53.83 Other fatigue; G43.909 Migraine, unspecified, not intractable, without status migrainosus; R18.8 Other ascites; Z92.21 Personal history of antineoplastic chemotherapy; R91.8 Other nonspecific abnormal finding of lung field; N13.30 Unspecified hydronephrosis; N13.4 Hydroureter
CPT/HCPCS: 36591; 71270; 72194; 74170; 74178; 81001; 82378; 85025; 85027; 86301; 90620; 96367; 96375; 96413; 96415; 96417; 96523; 99212; J1100; J1453; J1642; J2060; J2469; J7040; J9035; J9206; Q9967; 76705; 82040; 82247; 82310; 82374; 82435; 82565; 82947; 84075; 84132; 84155; 84295; 84450; 84460; 84520; J7050

== ENCOUNTER → 2017-07-14 | Outpatient (CLI) | payer SELFPAY ==
[~2017-07-14] MED LIST changes: -ALTEPLASE RECOMB 2 MG VIAL IVP PRN; -ATROPINE SUL 1 MG/ML VIAL IVP PRN; -BEVACIZUMAB IVPB PRN; +DEX4 FT; -DEXTROSE 5%(*) 100 ML BAG 100 ML IVPB PRN; +DOCU-416 PO; -FOSAPREPITANT DIM 150 MG/5 ML 150 MG in NS(*) 0.9% 250 ML BAG 245 ML IVPB ONE; +GABA-549 PO; -IOPAMIDOL 76% 75 ML INFUS BTL 75 ML ONE; -LORazepam 2 MG/ML VIAL IVP PRN; -MENING VAC A,C,Y,W-135 DIP/PF 4 MCG/0.5 ML VIAL IM ONE; -NS 0.9% IVPB PRN; -NS(*) 0.9% 100 ML BAG 100 ML IVPB PRN; +OXYC-823 PO; -PALONOSETRON 0.25 MG/5 ML VIAL IVP ONE; -WATER STERILE 10 ML VIAL IVP PRN; -[UNRECOGNIZED DRUG - OTHER] IM ONE
--- NOTE | 2017-07-14 14:03 | RADIOLOGY IMAGING REPORT ---
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 Delayed anterior and posterior wh ole body gamma camera images were obtained. Additional gamma camera images: Right left lateral skull and posterior pelvis COMPARISON: CT chest abdomen and pelvis July 11, 2017 and MR the lumbar spine June 13, 2017 FINDINGS: Bone radiotracer activity: There are patchy areas of isotope uptake seen throughout the thoracic and lumbar spine. Findings are particularly evident at T12 L1-3-4 and five. There is symmetric increas ed isotope uptake seen over the sacrum on the posterior images anterior aspect of the iliac bones on the anterior images, over the shame on the right, both hip joints sternum and scapula bilaterally. A lso noted is increased isotope uptake over the anterior aspect of several right mid ribs. Extraosseous radiotracer activity: Unremarkable. Renal and urinary collecting system activity: Unremarkable. IMPRESSION: Multifocal areas of isotope uptake within the skeleton as described above consistent with the history of known osseous metastases. The metastatic foci were much more evident however on the prior MR Report Dictated By: Moni Mcrae MD at 07/14/2017 1:52 PM Report E-Signed By: Moni Mcrae MD at 07/14/2017 2:00 PM [id number]:[email or web address]
== END ==
LOC: RAD 02:19
PROVIDERS: ATTEND Student in an Organized Health Care Education/Training Program
DX: C79.51 Secondary malignant neoplasm of bone (principal); C18.1 Malignant neoplasm of appendix
CPT/HCPCS: 78306; A9503

== ENCOUNTER 2017-07-22 10:30 | Outpatient (RCR) | payer SELFPAY ==
[~2017-07-22 10:30] MED LIST changes: -DEX4 FT; +IBUP600T22 PO
--- NOTE | 2017-07-23 16:00 | PT INITIAL EVALUATION ---
MEDICAL DIAGNOSIS: Malignant Neoplasm of the Appendix TREATMENT DIAGNOSIS: Malignant Neoplasm of the Appendix, Shoulder Pain, Lumbar Pain DATE OF ONSET: 07/23/17 SUBJECTIVE: George is a 32 year old female presenting to oncology rehabilitation for physical therapy for pain relief as well a maintenance of function with diagnosis of malignant neoplasm of the appendix. Pt was first diagnosed with abdominal masses on September 06, 2016. 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 Biopsy of the tumor nodule at the aortic bifurcation was also positive for metastatic adenocarcinoma. Omentum was involved with metastatic adenocarcinoma. The right hemicolectomy specimen, including appendix, showed evidence of invasive poorly differentiated adenocarcinoma arising from the appendiceal orifice and showing full-thickness invasion of the bowel wall with involvement of cirrhosis. Six of 17 lymph nodes positive for metastatic adenocarcinoma. Pt was initiated on chemotherapy regime of FOLFOX for 4 cycles starting on October 30, 2016. On July, pt initiated radiation treatment for further disease progression management to the lumbar spine as well as to the L scapula. At this time pt has completed radiation and is looking for admission to a clinical trial. Pain is being manages as a palliative care effort through medications which pt is careful to take secondary to decreased liver function. Currently pt reports pain in her L shoulder radiating to the deltoid region, as well as occasional low back pain. Pt has frequent nausea which is being managed. Pt reports relatively full function in ADL's with frequent fatigue and decreased L arm mobility. 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 Posture: Posture significant for B rounded shoulders with L shoulder slightly anterior. ROM: UE ROM: R: WFL, L: Shoulder: Flexion: 70 degrees with pain, Abd: 65 degrees with painful arc, full abd with AAROM from 70-120 degrees, ER: full with pain in end range, IR: full with pain throughout range. Lumbar ROM: WFL Strength: L Shoulder: ER: 3+/5 with pain, Flexion: 3+/5 with pain, IR: 3/5 with pain, Ext: 4+/5, Abd: 4/5 with slight pain. Special Tests: Empty Can (-) Mobility: ECOG Performance Status: Grade 2 Other Objective Findings: FACT-G: PWB: , SWB: , EWB: , FWB: , Total: 98/108 ASSESSMENT: Pt shows signs and symptoms consistent with RTC pathology as secondary to malignancy in the scapula resulting in decreased strength, loss of motion, increased pain, and decreased function of the R shoulder. Physical therapy is indicated for this patient to maintain shoulder mobility and enhance pt function for palliative care resulting in decreased pain and increased ability to perform ADL's. Additionally, PT is indicated to supplement pain relief methods for decreased lumbar pain and dysfunction secondary to disease progression for palliative care. Short Term Goals In 1 MO pt will be independent with home TEN's unit for management of pain for palliative care with ongoing oncological intervention. In 2 MO pt will maintain full shoulder PROM for maintenance of mobility and increased function with ongoing oncological treatment. In 2 MO pt will maintain FACT-G status of > 90 for maintenance of functional and general well-being with ongoing treatment. Patient's Goals Maintain function and manage pain with spread of disease PLAN: Patient to be seen for Manual Therapy/STM/MET Strengthening/condition Ice/Heat Range of Motion Spinal Stabilization Stretching Neuromuscular Re-ed Closed Chain Program Electrical Stim Posture/Body mechanics Gait Trg/Balance Trg Biofeedback Home Exercise Program Therapeutic Activities Pelvic Floor 1x/Week for 4 Months If you have any questions, comments, or concerns about this report or plan, please contact me at . Thank you, Kaitlyn Howe, PT, DPT, CLT [facility]
[2017-08-27] MEDS ORDERED: FENT1PAT40 TD (13:35)
[2017-08-27] MEDS ORDERED: IBUP400T13 PO (15:04)
[2017-09-09] MEDS ORDERED: CBD ×2 (15:20→15:21)
[2017-09-09] MEDS ORDERED: HALO5AMP5 IJ (15:20)
[2017-09-09] MEDS ORDERED: GABA-549 PO (15:20)
[2017-09-09] MEDS ORDERED: FENT1PAT40 TD (15:20)
== END 2017-07-22 18:00 | disposition home or self-care (01) ==
LOC: PT 10:30
PROVIDERS: ATTEND Internal Medicine Medical Oncology
DX: Z51.5 Encounter for palliative care (principal); C18.1 Malignant neoplasm of appendix; M25.512 Pain in left shoulder; C77.9 Secondary and unspecified malignant neoplasm of lymph node, unspecified; K74.60 Unspecified cirrhosis of liver; G89.3 Neoplasm related pain (acute) (chronic); Z90.721 Acquired absence of ovaries, unilateral; Z90.49 Acquired absence of other specified parts of digestive tract; Z92.3 Personal history of irradiation
CPT/HCPCS: 97162

== ENCOUNTER 2017-08-25 16:44 | Outpatient (RCR) | payer SELFPAY ==
[2017-08-27] MEDS ORDERED: FENT1PAT40 TD (13:35)
[2017-08-27] MEDS ORDERED: IBUP400T13 PO (15:04)
== END 2017-08-26 07:38 | disposition home or self-care (01) ==
LOC: RAON 16:44
PROVIDERS: ATTEND Radiology Radiation Oncology
DX: Z02.9 Encounter for administrative examinations, unspecified (principal)

== ENCOUNTER 2017-09-10 15:03 | Outpatient (RCR) | payer SELFPAY ==
[2017-07-11 11:02] VITALS: BP 125/80
[2017-07-11] MEDS: HEPARIN FLSH (PORT) 500 UN/5ML IVP PRN (12:48)
[2017-07-11] MEDS: LIDOCAINE/SOD BICARB 8.4% SYR ID PRN (12:48)
--- NOTE | 2017-07-11 13:51 | RADIOLOGY IMAGING REPORT ---
[place] [facility] [place] NAME: George Alejandro : 1985 MR: [id number] V: [id number] EXAM DATE: ORDERING PHYSICIAN: ANSLEY CURRY TECHNOLOGIST: Location: [facility] Patient: George Alejandro : 1985 Visit/Account:[id number] Date of Sevice: 07/11/2017 CHEST/AB/PELV W/CONTRAST HISTORY: Neoplasm of the appendix ADDITIONAL HISTORY: None. TECHNIQUE: Contiguous axial images acquired through the chest abdomen and pelvis following IV contras t. Coronal and sagittal reformatting was also performed. Dose Lowering Technique One of the following dose optimization techniques was utilized in the performance of this exam: Autom ated exposure control; adjustment of the mA and/or kV according to the patient's size; or use of an i terative reconstruction technique. Specific details can be referenced in the facility's radiology C T exam operational policy. Contrast: 75 mL of Isovue-370 COMPARISON: CT chest seven pelvis April 10, 2017 , MR lumbar spine June 13, 2017 FINDINGS: CHEST: Lungs/Pleura: There is been an overall increase in the size of several of the bilateral pulmonary no dules. Previously the largest nodule measured to 3 mm. The largest nodule measures 8 x 4 mm previou sly 5 x 2 mm best seen on image 50 of series 4. The largest new nodule on the left now measures 8 mm in diameter, previously 4 mm best seen on image 81 of series 4. Mediastinum/lymph nodes: Negative. Heart/vessels: There is an implanted right-sided port distal tip in superior vena cava Bones/soft tissues: There is inhomogeneous marrow density in the thoracic spine consistent with the prior MR findings of metastases. No acute appearing fractures are seen. T11-12 disc protrusion agai n noted. ABDOMEN AND PELVIS: Hepatobiliary: There has been interval development of multiple small round hypodensities seen throug hout the liver the largest measuring approximately 8.5 mm in diameter in the right lobe and 9 mm and the left lobe concerning for metastases. There are postsurgical changes from a cholecystectomy with mild intrahepatic ductal dilatation. Spleen: Post surgical changes from splenectomy Pancreas: Negative. Adrenals: Negative. Kidneys ureters and bladder : There is mild to moderate hydronephrosis and hydroureters bilaterally. There is less bladder wall thickening when compared the prior study. Genitalia: Hysterectomy GI: US multiple staple line at the rectosigmoid junction is again noted, anastomosis also noted on adjacent to the cecum additional surgical clips in the left mid abdomen. Again noted is a moderate a mount of fecal material throughout colon which can be seen with constipation. Vessels/spaces/nodes: There is less thickening of the presacral soft tissues when compared the prior study which was likely postoperative in nature . Mildly prominent mesenteric lymph nodes appear re latively unchanged Bones/soft tissues: Mottled appearance to the lumbar spine, iliac bones and sacrum are consistent wi th the prior MR findings of osseous metastases . There is an increased depression seen along the bui perior left side of the L2 vertebral body when compared the prior CT from a known metastasis. Additional findings: None pertinent. IMPRESSION: There is been an increase in size of several of the bilateral pulmonary nodules as descri bed above. Inhomogeneous marrow density in the thoracic spine, lumbar spine, sacrum and iliac bones consistent w ith known metastases. There is increasing loss of height along the left lateral aspect of the superi or endplate of L2. Interval development of small round hypodensities throughout the liver extremely concerning for hepat ic metastases Mild to moderate hydronephrosis and hydroureter bilaterally although appears similar to the prior precious dy Less bladder wall thickening and less presacral thickening when compared the prior study Post surgical changes from a cholecystectomy and splenectomy hysterectomy and multipl sites within t he bowel as detailed above Report Dictated By: Moni Mcrae MD at 07/11/2017 12:33 PM Report E-Signed By: Moni Mcrae MD at 07/11/2017 1:47 PM [id number]
[2017-07-16 15:12] VITALS: BP 106/86
[2017-07-16] MEDS: HEPARIN FLSH (PORT) 500 UN/5ML IVP PRN (16:50)
--- NOTE | 2017-07-17 17:49 | ONCOLOGY FOLLOW UP NOTE ---
EVENT DATE: July 16, 2017 This is an overbooked follow-up visit. INTERIM HISTORY George is here for an overbooked visit that had not been scheduled. She has undergone a follow-up CT scan that unfortunately has shown significant progression of her appendiceal carcinoma. This includes both findings in the chest and in the liver. She just returned from receiving her first palliative radiation. She is here to discuss pain control. She is extremely nauseated today, throwing up several times during our visit. We discussed briefly her recent visit with Dr. Carrasco at the [facility] in [place]. There are tentative plans in place for her to be enrolled on a clinical trial there, but the patient's mother reports that they also have a potential visit at the [facility]. As discussed, images will be pushed to Dr. Carrasco and his team at [facility] for their review. I would hope that we are seeing evidence of biliary obstruction, as opposed to diffuse hepatic involvement and dysfunction causing the hyperbilirubinemia that we are seeing on today's labs. We moved on to discuss pain control. I have written her a new prescription for both OxyContin and oxycodone. George is very careful with her pain medications , and this will need to continue, especially given her current hepatic dysfunction. [facility] antiemetics and hydration today, and we also discussed antiemetic use at home. I would plan to see George back in clinic as soon as she needs, considering my schedule here at [facility]. She does have a plan in place with Dr. Carrasco , and I have communicated with him today about the plan moving forward, which may need to require an ERCP. This will depend on imaging review with [facility]. [facility]
[2017-07-21 10:30] LABS: PLATELET COUNT, AUTOMATED 447 K/uL (150-450)
[2017-07-21 11:22] VITALS: BP 130/86
--- NOTE | 2017-07-21 15:12 | ONC Progress Note - NP.Halsey ---
Patient History: Diabetes mellitus (DM) MOTHER, Age:52 FH: HTN (hypertension) FATHER, Age:56 FH: depression FATHER, Age:56 FH: sleep apnea FATHER, Age:56 No pertinent family history BROTHER OR SISTER BROTHER OR SISTER Social History: Social History This is a 32 Yr old White female, she is S Single and has No Children. 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 Alcohol History Denies Recreational Drug History Denies. Hx Smoking: No Smoking Status: Never Smoker Oncology History Oncology History 1. Appendiceal adenocarcinoma. a. Initial presentation on September 03, 2016 with a six-week history of abdominal discomfort, bloating, distention, lack of appetite, and loose stools. b. On September 06, 2016, CT scan of abdomen and pelvis shows a 12 x 15 x 21 cm complex low attenuation mass within the low anterior abdomen and pelvis, and 5 x 7 x 6 cm mass in the posterior midline pelvis; associated with moderately large volume of ascites and left upper quadrant omental caking. 2. Patient is referred to Dr. Yepez at [facility]. a. September 12, 2016: Patient undergoes radical carcinoma debulking per right salpingo-oophorectomy and left ovarian cystectomy, large bowel tumor excision and excision of pelvic floor tumor including aortic bifurcation tumor nodule, total omentectomy, right hemicolectomy, exploratory laparotomy, and lysis of adhesions. b. 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 Biopsy of the tumor nodule at the aortic bifurcation was also positive for metastatic adenocarcinoma. Omentum was involved with metastatic adenocarcinoma. The right hemicolectomy specimen, including appendix, showed evidence of invasive poorly differentiated adenocarcinoma arising from the appendiceal orifice and showing full-thickness invasion of the bowel wall with involvement of cirrhosis. Six of 17 lymph nodes positive for metastatic adenocarcinoma. c. October 11, 2016: CT chest, abdomen and pelvis shows no evidence for metastatic disease above the diaphragm. Postoperative changes were noted from midline laparotomy and appendectomy. No evidence of postoperative complication , bowel obstruction, or bowel leak. Large volume ascites with omental thickening and peritoneal carcinomatosis was noted. Complexity of ascites was diminished, presumably from debulking. Findings potentially consistent with pseudomyxoma peritonei. Education on 10/28/2016 with scheduled treatment with FOLFOX 4 cycles which began on on 10/30/2016. Patient will receive cycle 4 today. She will then follow with her surgeon and have a CT completed next week with oral contrast. 07/16/2017 first XRT treatment session. .Tolerated well. nausea, vomiting. Pain medication narcotics titrated up. Zofran, Iv fluids hydration NS 1 Liter given at clinic.Patient instructed patient to take antiemetics q6 hours PRN. Review of Systems Constitution: Denies Appetite/Weight Change, Denies Fever/Chills/Sweating, Denies Recent Infection, Denies Other Cardiovascular: No Chest Pain, No Orthopnea, No Edema, No Palpitations, No OTHER Respiratory: No Cough, No Expectoration, No Hemoptysis, No Shortness of Breath , No Wheezing, No OTHER HEENT: No EARS: Tinnitus, No NOSE: Nasal Discharge, No THROAT: Sore Throat, No EYES: Dipolpia, No EARS: Hearing Problems, No NOSE: Epistaxis, No THROAT: Mouth Ulcers, No EYES: Vision Change, No OTHER Gastrointestinal: Nausea, Diarrehea, Constipation Gentiourinary: No Hematuria, No Dysuria, No Nocturia, No Other Endocrine: No Issues with Diabetes, No Issues with Hotflashes, No Issues with Thyroid, No Issues with Menstrual Pattern Hematological: Weakness, Fatigue Musculogskeletal: Muscle Pain, Joint Pain, Bone Pain Psychiatric: Anxiety, Other Physical Exam Vital Sign Temperature: 98.2 Pulse: 91 BP Systolic: 130 BP Diastolic: 86 Respiratory Rate: 16 O2 SAT: 96 O2 Delivery: Height (feet) Height (inches) 67.40 Weight lb: 150 Weight oz: Weight Kg ([place]): [id number] Pain: 3 ECOG- 2 General: Looks Stable, Other (in no acute distress) HEENT: HEAD:Atraumatic, No EYES: Conjuctivitis, No EYES: Icterus, No MOUTH: Mucocitis, No MOUTH: Oral Thrush, No SINUS: Tenderness to Palpation, No Other Neck: Supple, No Cervical Lymphadenopathy, No Subclavicular Lymphadopathy, No Thyromegaly, No Other Lungs: Clear to Auscultation, Percussion Bilaterally Heart: Regular Rate and Rhythm, No Gallops, No Murmurs, No Clicks, No Rubs, No Other Extremities: No Cyanosis, No Clubbing, No Edema, No Other Lymphatics: No Peripheral Lymphadenopathy, No Other Psychiatric: Mood appears normal, Affect appears normal Skin: Skin Rashes Laboratory Laboratory Tests 07/21/17 10:20 Laboratory Tests 07/21/17 10:20: White Blood Count 7.2, Red Blood Count 4.74, Hemoglobin 14.2, Hematocrit 41.5, Mean Corpuscular Volume 87.6, Mean Corpuscular Hemoglobin 30.0, Mean Corpuscular Hemoglobin Concent 34.2, Red Cell Distribution Width 20.4, Platelet Count 447, Mean Platelet Volume 7.7, Neutrophils (%) (Auto) , Lymphocytes (%) ( Auto) , Monocytes (%) (Auto) , Eosinophils (%) (Auto) , Basophils (%) (Auto) , Nucleated RBC Relative Count (auto) , Neutrophils # (Auto) , Lymphocytes # (Auto ) , Monocytes # (Auto) , Eosinophils # (Auto) , Basophils # (Auto) , Nucleated RBC Absolute Count (auto) , Neutrophils % (Manual) 73, Lymphocytes % (Manual) 15 , Atypical Lymphocytes % 1, Monocytes % (Manual) 7, Eosinophils % (Manual) 4, Basophils % (Manual) 0, Peripheral Blood Smear Yes, Sodium Level 139, Potassium Level 3.9, Chloride Level 99, Carbon Dioxide Level 26, Blood Urea Nitrogen 9, Creatinine 0.50, Glomerular Filtration Rate Calc > 60.0, Random Glucose 185, Calcium Level 9.5, Total Bilirubin 6.3, Aspartate Amino Transf (AST/SGOT) 76, Alanine Aminotransferase (ALT/SGPT) 178, Alkaline Phosphatase 518, Total Protein 7.3, Albumin 3.8 Allergies & Medications Allergies: Coded Allergies: No Known Drug Allergies (Unverified , 10/09/15) Home Meds Reported Medications Oxycodone Hcl (OXYCONTIN) 10 Mg Tab.er.12h, 10 MG PO Q12H, TAB 20 mg q morning 40 mg qhs 06/30/17 Docusate Sodium (COLACE) 100 Mg Capsule, 100 MG PO 2-3XD Y for CONSTIPATION, CAPSULE 06/18/17 Oxycodone Hcl (OXYCONTIN) 10 Mg Tab.er.12h, 5 MG PO PRN, TAB 06/18/17 Gabapentin (GABAPENTIN) 300 Mg Capsule, 300 MG PO BID, CAPSULE 06/18/17 Sumatriptan Succinate (IMITREX) 25 Mg Tablet, 25 MG PO ONCE Y for MIGRAINE 04/30/17 Doxylamine Succinate (UNISOM SLEEP AID) 25 Mg Tablet, 25 MG PO HS Y for INSOMNIA 04/30/17 Diazepam (VALIUM) 5 Mg Tablet, 5 MG PO QHS Y for INSOMNIA, #5 TAB 04/30/17 Lorazepam (ATIVAN) 0.5 Mg Tablet, 0.5 MG PO Q4-6H Y for NAUSEA 04/30/17 Ondansetron Hcl (ZOFRAN) 4 Mg Tablet, 4 MG PO Q8H Y for NAUSEA, TAB 04/30/17 Discontinued Reported Medications Ibuprofen (IBUPROFEN) 600 Mg Tablet, 1 TAB PO Q6H Y for PAIN, TAB 07/16/17 Dexamethasone 4 Mg Tab (DEXAMETHASONE 4 MG TAB) 4 Mg Tab, 2 MG PO DAILY, TAB 06/18/17 Loperamide HCl (Imodium A-D) 2 Mg Capsule Take 4 mg with first watery stool; then take 2 mg every 2 hours during the day and 4 mg every 4 hours at night until no bowel movement 04/30/17 Prochlorperazine Maleate (Compazine) 10 Mg Tablet, 10 MG PO Q6H Y for NAUSEA 04/30/17 Assessment/Plan Ms. Flavia Vazquez is a 32 year old woman who has Appendiceal adenocarcinoma, peritoneal carcinomatosis. Dx:08/2016. s/p FOLFOX 4 cycles ongoing 5 fractions of XRT. Patient presents to cancer center today for her management of diagnosis and labs monitoring. Patient is here wither mother. She is hemodynamically stable. Patient has a planned ERCP by Dr. Hughes (). She recently initiated Palliative XRT with Dr. Schmidt. Currently on Supportive treatment for labs, pain and nausea management. . T. Bili today is 6.3 DIAGNOSTIC DATA AST 76; AST 178; alkaline phosphatase 518; U19; creatinine 0.50; GFR over 60; WBC 7.2; hemoglobin 14.2; hematocrit 41.5; platelet count 447; 1. Appendiceal adenocarcinoma, peritoneal carcinomatosis. BILIARI OBSTRUCTION close monitoring of T.BILI . mild improvement on severity of nausea, planned upcoming ERCP -2. Cancer related pain. Patient on -Suportive measures as of 07/21/2017 and medication reconciliation done today PAIN: oxycontin 40mg PO q Bedtime, and 20 mg PO at 8Am. , and oxycodone 5mg PO for breakthrough pain at 6Pm; Gapapentin 300mg PO BID. hema still has pain control meds until august 19 2017 aproximately. 3. NAUSEA: Zofran 4mg PO Daily. RX refill for 90 pills given today. -Cancer induced nausea- controlled with Zofran. Reports Compazine makes her tired 4. CONSTIPATION. continue with OTC colace, senna, miralax PRN 5. -SKIN RASH/ITCHINESS- on Benadryl PO, instructed to get Benadryl OTC lotion and apply to affected skin areas. -6. HISTORY OF ASCITES Paracentesis x1 prior to initiation of FOlfox chemo in fall. PLAN - ERCP upcoming - Hapto, LDH, Retic count, Direct/indirect Bili. PT/INT/PTT, Fibrinogen - Provide hydration - Continue XRT -RTC for labs as schedule - Awaiting qualification for clinical trials aiming for a target T.BILI OF 2.0 OR LESS -Continue supportive symptom management and psychosocial support -Patient to call cancer center with any issues or concerns. 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 TIME SPENT: 30 minutes 25> minutes includes but not limited to discussion, counselling and co-ordination~ of care. Discussion with other health care providers, record review, review of lab work, diagnostic tests. Plan discussed extensively with patient, and mother. All the questions answered today. Thank you for the opportunity to be involved in the care of Flavia Vazquez. Billing Level: Return visit 4 ELLIE MERRITT, ONC Jul 21, 2017 15:12
[2017-07-22 11:52] LABS: INR 0.97
[2017-07-31 11:11] VITALS: BP 130/78
[2017-07-31] MEDS: LIDOCAINE/SOD BICARB 8.4% SYR ID PRN (11:13)
[2017-07-31] MEDS: HEPARIN FLSH (PORT) 500 UN/5ML IVP PRN (11:13)
[2017-08-04 11:05] VITALS: BP 142/102
[2017-08-04] MEDS: LIDOCAINE/SOD BICARB 8.4% SYR ID PRN (11:05)
[2017-08-04] MEDS: HEPARIN FLSH (PORT) 500 UN/5ML IVP PRN (11:05)
--- NOTE | 2017-08-04 20:00 | Oncology Progress Note ---
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 Oncology History Oncology History: 1. Appendiceal adenocarcinoma. On september 03 2016 Initial presentation with a six-week history of abdominal discomfort, bloating, distention, lack of appetite, and loose stools. - On September 06, 2016, CT scan of abdomen and pelvis shows a 12 x 15 x 21 cm complex low attenuation mass within the low anterior abdomen and pelvis, and 5 x 7 x 6 cm mass in the posterior midline pelvis; associated with moderately large volume of ascites and left upper quadrant omental caking. 2. Patient is referred to Dr. Yepez at [facility]. - September 12, 2016: Patient undergoes radical carcinoma debulking per right salpingo-oophorectomy and left ovarian cystectomy, large bowel tumor excision and excision of pelvic floor tumor including aortic bifurcation tumor nodule, total omentectomy, right hemicolectomy, exploratory laparotomy, and lysis of adhesions. 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 - Biopsy of the tumor nodule at the aortic bifurcation was also positive for metastatic adenocarcinoma. Omentum was involved with metastatic adenocarcinoma. The right hemicolectomy specimen, including appendix, showed evidence of invasive poorly differentiated adenocarcinoma arising from the appendiceal orifice and showing full-thickness invasion of the bowel wall with involvement of cirrhosis. Six of 17 lymph nodes positive for metastatic adenocarcinoma. - October 11, 2016: CT chest, abdomen and pelvis shows no evidence for metastatic disease above the diaphragm. Postoperative changes were noted from midline laparotomy and appendectomy. No evidence of postoperative complication, bowel obstruction, or bowel leak. - Large volume ascites with omental thickening and peritoneal carcinomatosis was noted. Complexity of ascites was diminished, presumably from debulking. Findings potentially consistent with pseudomyxoma peritonei. - 10/28/2016 Education with scheduled treatment with FOLFOX 4 cycles - 10/30/2016. FOLFOX gegan Patient will receive cycle 4 today. She will then follow with her surgeon and have a CT completed next week with oral contrast. -Fall 2016 per patietn she had a paracentesis done for ascites - 07/16/2017 first XRT treatment session. Patient experienced nausea, vomiting x4. Pain medication narcotics titrated up. Zofran, Iv fluids hydration NS 1 Liter given at clinic.Patient instructed to take antiemetics q6 hours PRN. - 07/28/17 ERCP done. Currently Monitoring T.Bili target goal of less or equal to 2.0 in preparation to meet criteria to Clinical trial Treatment Treatment: S/p ERCP on 07/28/17 currently Monitoring T.Bili target goal of </=2.0 in preparation for criteria to Clinical trial. -Suportive measures as of 07/21/2017 PAIN: oxycontin 40mg PO q Bedtime, and 20 mg PO at 8Am. , and oxycodone 5mg PO for breakthrough pain at 6Pm; Gapapentin 300mg PO BID NAUSEA: Zofran 4mg PO Daily Skin itchiness: benadryl 25 mg PO bedtime HPI HPI: Ms. Flavia Vazquez is a 32 year old woman who has Appendiceal adenocarcinoma, peritoneal carcinomatosis. Patient presents to cancer center today for her management of diagnosis and labs monitoring. Patient is here wither mother. She is hemodynamically stable. Patient recently had an ERCP done at [facility] by [facility] (). She recently completed Palliative XRT with Dr. Schmidt in mid-July 2017 approximately. Currently on Supportive treatment for labs, pain and nausea management. While awaiting qualification for clinical trials aiming for a target T.BILI OF 2.0 OR LESS. Living Conditions: Lives with her mother. 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 Diagnostic Studies Result Diagram: 08/04/17 1053 PMH Patient History: Diabetes mellitus (DM) MOTHER, Age:52 FH: HTN (hypertension) FATHER, Age:56 FH: depression FATHER, Age:56 FH: sleep apnea FATHER, Age:56 No pertinent family history BROTHER OR SISTER BROTHER OR SISTER Social/Occupational History Social History: Social History This is a 32 Yr old White female, she is S Single and has No Children. 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 Alcohol History Denies Recreational Drug History Denies. Hx Smoking: No Smoking Status: Never Smoker Allergies & Medications Allergies: Coded Allergies: No Known Drug Allergies (Unverified , 10/09/15) Home Meds Reported Medications Ibuprofen (IBUPROFEN) 600 Mg Tablet, 1 TAB PO Q6H Y for PAIN, TAB 07/16/17 Oxycodone Hcl (OXYCONTIN) 10 Mg Tab.er.12h, 10 MG PO Q12H, TAB 20 mg q morning 40 mg qhs 06/30/17 Docusate Sodium (COLACE) 100 Mg Capsule, 100 MG PO 2-3XD Y for CONSTIPATION, CAPSULE 06/18/17 Oxycodone Hcl (OXYCONTIN) 10 Mg Tab.er.12h, 5 MG PO PRN, TAB 06/18/17 Dexamethasone 4 Mg Tab (DEXAMETHASONE 4 MG TAB) 4 Mg Tab, 2 MG PO DAILY, TAB 06/18/17 Gabapentin (GABAPENTIN) 300 Mg Capsule, 300 MG PO BID, CAPSULE 06/18/17 Loperamide HCl (Imodium A-D) 2 Mg Capsule Take 4 mg with first watery stool; then take 2 mg every 2 hours during the day and 4 mg every 4 hours at night until no bowel movement 04/30/17 Sumatriptan Succinate (IMITREX) 25 Mg Tablet, 25 MG PO ONCE Y for MIGRAINE 04/30/17 Doxylamine Succinate (UNISOM SLEEP AID) 25 Mg Tablet, 25 MG PO HS Y for INSOMNIA 04/30/17 Diazepam (VALIUM) 5 Mg Tablet, 5 MG PO QHS Y for INSOMNIA, #5 TAB 04/30/17 Lorazepam (ATIVAN) 0.5 Mg Tablet, 0.5 MG PO Q4-6H Y for NAUSEA 04/30/17 Ondansetron Hcl (ZOFRAN) 4 Mg Tablet, 4 MG PO Q8H Y for NAUSEA, TAB 04/30/17 Prochlorperazine Maleate (Compazine) 10 Mg Tablet, 10 MG PO Q6H Y for NAUSEA 04/30/17 Review of Systems Constitution: Positive for Appetite/Weight Change (mild improvement), Denies Fever/Chills/Sweating, Denies Recent Infection, Denies Other HEENT: No EARS: Tinnitus, No NOSE: Nasal Discharge, No THROAT: Sore Throat, No EYES: Dipolpia, No EARS: Hearing Problems, No NOSE: Epistaxis, No THROAT: Mouth Ulcers, No EYES: Vision Change, No OTHER Respiratory: No Cough, No Expectoration, No Hemoptysis, No Shortness of Breath , No OTHER Cardiovascular: No Chest Pain, No Orthopnea, No Edema, No Palpitations, No OTHER Gastrointestinal: Nausea, No Vomitting, No Diarrehea, No Constipation, No Heart Burn, No Swallowing Difficulties, No Abdominal Pain, No Other Gentiourinary: No Hematuria, No Dysuria, No Nocturia, No Other Musculoskeletal: Muscle Pain, Joint Pain, Bone Pain Hematological: No Bleeding, Weakness, No Enlarged Lyph Nodes, No Bruising, No Fatigue, No Other Skin: Skin Rash Psychiatric: Anxiety, No Depression, Other Vital Signs Vital Signs Temperature: 98.6 Pulse: 86 BP Systolic: 142 BP Diastolic: 102 Respiratory Rate: 16 O2 SAT: 98 O2 Delivery: Height (feet) Height (inches) 67.40 Weight lb: 150 Weight oz: Weight Kg (Molina): [id number] Pain: 3 Physical Exam General: Looks Stable HEENT: HEAD:Atraumatic Neck: Supple Lungs: Clear to Auscultation, Percussion Bilaterally Heart: Regular Rate and Rhythm Abdomen: Soft and Nontender, Other (cva tenderness) Extremities: No Cyanosis, No Clubbing, No Edema, No Other Lymphatics: No Peripheral Lymphadenopathy, No Other Psychiatric: Mood appears normal, Affect appears normal Skin: Skin Rashes (mild), No Bruising, No Purpura, No Moist Desquamation, No Dry Desquamation, No Errythema, No Mild Errythema, No Moderate Errythema, No Severe Errythema, No Induration, No Other Breast: No No Masses, No No Nipple Discharge, No No Skin Changes, No Other Assessment and Plan Assessment and Plan: Ms. Flavia Vazquez is a 32 year old woman who has Appendiceal adenocarcinoma, peritoneal carcinomatosis. Appendiceal adenocarcinoma, peritoneal carcinomatosis Diagnostic Labs CMP on 08/04/2017 carcinoembryonic antigen 55.4, CA 199 antigen 1163, CEA 125 antigen 148, vitamin D 25-hydroxy 23, lactate dehydrogenase 746, alkaline phosphate 05/29/18, AST 122, ALT 227, TOTAL BILIRUBIN; DIRECT BILI 4.5, random glucose 239, whole blood glucose 195, BUN 6, creatinine 0.50, PLAN - Moniotor target T. Bili to 2.0 or less - patient will need Biopsy and MRI for Dr. Lieu trials - Patient aiming to qualify for [facility] trial for 08/23/17 -patient may apply OTC benadryl lotion to skin ittchiness area. -patient to conterrynue with her pain and nausea management regimen. - HgbA1c lab pending due to elevated gucose today. - Patient to contact Both clinical trials center for update on work up and requirements. - patient to contact clinic with clinical trials update , and with any concerns. CLINICAL TRIALS UPDATE 1.[facility] Patient and mother informed me that they had recently been in contact with [facility] for the upcoming trial August 23, 2017. Patient is first on waiting list with Dr. Rosa 2.Criteria to be enrolled in the trial will be a target T. Bili of less or equal to 2.0 . T. bili today is 5.4 [facility] [place] 3.Dr. Carrasco at the [facility] in [place], patient has been in touch with Center and she will need to have an MRI, and a Biopsy in order to be entered in the [facility] in [place]. For which She is currently second on the waiting list. Patient wishes to pursue [facility] trials at present time, while coordinating with [facility]. DIAGNOSIS -BILIARI OBSTRUCTION S/p ERCP on close monitoring of T.BILI . She reports mild improvement on appetite, mild improvement on severity of nausea, and less yellow skin tone. -Cancer related pain. Patient on -Suportive measures as of 07/21/2017 and medication reconciliation done today PAIN: oxycontin 40mg PO q Bedtime, and 20 mg PO at 8Am. , and oxycodone 5mg PO for breakthrough pain at 6Pm; Gapapentin 300mg PO BID. hema still has pain control meds until august 19 2017 aproximately. NAUSEA: Zofran 4mg PO Daily. RX refill for 90 pills given today. -Cancer induced nausea- controlled with Zofran. Reports Compazine makes her tired -SKIN RASH/ITCHINESS- on Benadryl PO, instructed to get Benadryl OTC lotion and apply to affected skin areas. -HYPERGLYCEMIA revealed by Random Blood glucose of 239, and Finger stick of 195. Patient's mother was diagnosed with type 1 diabetes mellitus at 29 years old . A1c lab ordered today. -HISTORY OF ASCITES Paracentesis x1 prior to initiation of FOlfox chemo in Fall of 2016. She reports having a sensation of her hips and partially abdomen sense of pooling. On physical exam there seem to be fluid accumulation on bilateral sacrum. TIME SPENT: 35 minutes > 30 minutes includes but not limited to discussion, counselling and co-ordination~ of care. Discussion with other health care providers, record review, review of lab work, diagnostic tests. Plan discussed extensively with patient. All the questions answered today. Thank you for the opportunity to be involved in the care of Billing Level: Return visit 4 CC Copies to: ZAINAB LAURENT DNP, WOODENWARE ASSEMBLER-BC; ANSLEY CURRY MD [facility] WOODENWARE ASSEMBLER-C, ONC Aug 04, 2017 11:59
[2017-08-11] MEDS: HEPARIN FLSH (PORT) 500 UN/5ML IVP PRN (12:25)
[2017-08-11] MEDS: LIDOCAINE/SOD BICARB 8.4% SYR ID PRN (12:25)
[2017-08-11 12:26] VITALS: BP 129/90
[2017-08-15] MEDS: LIDOCAINE/SOD BICARB 8.4% SYR ID PRN (15:00)
[2017-08-15] MEDS: HEPARIN FLSH (PORT) 500 UN/5ML IVP PRN (16:18)
--- NOTE | 2017-08-15 16:52 | RADIOLOGY IMAGING REPORT ---
FACILITY: [facility] PATIENT NAME: George Alejandro : 1985 MR: [id number] V: [id number] EXAM DATE: ORDERING PHYSICIAN: ANSLEY CURRY TECHNOLOGIST: [place] [facility] [place] Ale[place] : 1985 Visit/Account:[id number] Date of Sevice: 08/15/2017 EXAMINATION: CT neck with IV contrast HISTORY: Appendiceal carcinoma. COMPARISON: CT chest from 07/11/2017. TECHNIQUE: Spiral scan was obtained from the hard palate through the upper chest during injection o f nonionic iodinated intravenous contrast. Sagittal and coronal reformatted images are also submitte d. CONTRAST: 100 mL of IV Isovue 370. One of the following dose optimization techniques was utilized in the performance of this exam: Autom ated exposure control; adjustment of the mA and/or kV according to the patient's size; or use of an i terative reconstruction technique. Specific details can be referenced in the facility's radiology C T exam operational policy. FINDINGS: Masses/lesions: None. Airway: Normal. Vessels: Negative. Musculoskeletal/body wall: No focal bony lesions visualized. Lymph nodes: There are scattered small lymph nodes in the neck bilaterally. No enlarged or abnormal morphology lymph nodes. Visualized orbits/brain/paranasal sinuses: Negative. Upper chest: There are a few noncalcified left apical lung nodules, which are similar to previous CT chest. IMPRESSION: No evidence of metastatic disease to the neck. Report Dictated By: Mandi Schroeder MD at 08/15/2017 4:35 PM Report E-Signed By: Mandi Schroeder MD at 08/15/2017 4:48 PM WSN:[id number]
--- NOTE | 2017-08-15 17:34 | Oncology Progress Note ---
History of Present Illness Evaluation Evaluation Date: Aug 15, 2017 Evaluation Time: 13:45 Primary Care Provider Primary Care Provider: Aarti Alston Accompanied by Accompanied by: Mother Last seen by : Stevie 07/21/17 Chief Complaint Chief Complaint Cancer related pain Oncology History Oncology History 1. Appendiceal adenocarcinoma. On september 03 2016 Initial presentation with a six-week history of abdominal discomfort, bloating, distention, lack of appetite, and loose stools. - On September 06, 2016, CT scan of abdomen and pelvis shows a 12 x 15 x 21 cm complex low attenuation mass within the low anterior abdomen and pelvis, and 5 x 7 x 6 cm mass in the posterior midline pelvis; associated with moderately large volume of ascites and left upper quadrant omental caking. 2. Patient is referred to Dr. Yepez at [facility]. - September 12, 2016: Patient undergoes radical carcinoma debulking per right salpingo-oophorectomy and left ovarian cystectomy, large bowel tumor excision and excision of pelvic floor tumor including aortic bifurcation tumor nodule, total omentectomy, right hemicolectomy, exploratory laparotomy, and lysis of adhesions. 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 - Biopsy of the tumor nodule at the aortic bifurcation was also positive for metastatic adenocarcinoma. Omentum was involved with metastatic adenocarcinoma. The right hemicolectomy specimen, including appendix, showed evidence of invasive poorly differentiated adenocarcinoma arising from the appendiceal orifice and showing full-thickness invasion of the bowel wall with involvement of cirrhosis. Six of 17 lymph nodes positive for metastatic adenocarcinoma. - October 11, 2016: CT chest, abdomen and pelvis shows no evidence for metastatic disease above the diaphragm. Postoperative changes were noted from midline laparotomy and appendectomy. No evidence of postoperative complication , bowel obstruction, or bowel leak. - Large volume ascites with omental thickening and peritoneal carcinomatosis was noted. Complexity of ascites was diminished, presumably from debulking. Findings potentially consistent with pseudomyxoma peritonei. - 10/28/2016 Education with scheduled treatment with FOLFOX 4 cycles - 10/30/2016. FOLFOX Patient will receive cycle 4 today. She will then follow with her surgeon and have a CT completed next week with oral contrast. -Fall 2016 per patient she had a paracentesis done for ascites - 07/16/2017 first XRT treatment session. Patient experienced nausea, vomiting x4. Pain medication narcotics titrated up. Zofran, Iv fluids hydration NS 1 Liter given at clinic.Patient instructed to take antiemetics q6 hours PRN. - 07/28/17 ERCP done. Currently Monitoring T.Bili target goal of less or equal to 2.0 in preparation to meet criteria to Clinical trial Treatment Treatment: S/p ERCP on 07/28/17 currently Monitoring T.Bili target goal of </=2.0 in preparation for criteria to Clinical trial. -Suportive measures as of 07/21/2017 08/04/17 PAIN: oxycontin 40mg PO q Bedtime, and 20 mg PO at 8Am. , and oxycodone 5mg PO for breakthrough pain at 6Pm; Gapapentin 300mg PO BID NAUSEA: Zofran 4mg PO Daily Skin itchiness: benadryl 25 mg PO bedtime 08/12/2017 PAIN: oxycontin 40mg PO q Bedtime, and 30 mg PO at 8Am. , and oxycodone 5mg PO for breakthrough pain at 6Pm; Gapapentin 300mg PO BID 08/15/2017 PAIN: oxycontin 40mg PO q Bedtime, and 30 mg PO at 8Am. , and oxycodone 5mg PO for breakthrough pain at 1pm and 6Pm; Gapapentin 300mg PO BID HPI HPI Ms. Flavia Vazquez is a 32 year old woman who has Appendiceal adenocarcinoma, peritoneal carcinomatosis. Patient presents to cancer center today complaining of pain throughout her spine .Patient is here wither mother and father. She is hemodynamically stable.Patient reports pain above level 7-8 on a scale ( 0-10) that travels throughout the spine to the left shoulder, to lower spine to the hip area, and this pain radiates down to the bilateral lower extremities, pain worsens while standing up, and pain is alleviated by laying down. patient reports" There is not a moment where I am not in pain, and for the last three days the pain gets to level 7-8 while standing, as if my spine is compressing." She denies loss sensation and no loss of bowel or bladder control. Patient is able to ambulate for short period of time. With debilitating pain towards the end of the day. Patient recently had an ERCP done at [facility] by Dr. Hughes (). She recently completed Palliative XRT with Dr. Schmidt in mid-July 2017 approximately. Currently on Supportive treatment for labs, pain and nausea management. While awaiting qualification for clinical trials aiming for a target T.BILI OF 2.0 OR LESS. T. Bili today is 2.7 Diagnostic Studies Result Diagram: 08/11/17 1213 PMH Patient History: Diabetes mellitus (DM) MOTHER, Age:52 FH: HTN (hypertension) FATHER, Age:56 FH: depression FATHER, Age:56 FH: sleep apnea FATHER, Age:56 No pertinent family history BROTHER OR SISTER BROTHER OR SISTER Social/Occupational History Social History: Social History This is a 32 Yr old White female, she is S Single and has No Children. 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 Alcohol History Denies Recreational Drug History Denies. Hx Smoking: No Smoking Status: Never Smoker Allergies & Medications Allergies: Coded Allergies: No Known Drug Allergies (Unverified , 10/09/15) Home Meds Reported Medications Ibuprofen (IBUPROFEN) 600 Mg Tablet, 1 TAB PO Q6H Y for PAIN, TAB 07/16/17 Oxycodone Hcl (OXYCONTIN) 10 Mg Tab.er.12h, 10 MG PO Q12H, TAB 20 mg q morning 40 mg qhs 06/30/17 Docusate Sodium (COLACE) 100 Mg Capsule, 100 MG PO 2-3XD Y for CONSTIPATION, CAPSULE 06/18/17 Oxycodone Hcl (OXYCONTIN) 10 Mg Tab.er.12h, 5 MG PO PRN, TAB 06/18/17 Dexamethasone 4 Mg Tab (DEXAMETHASONE 4 MG TAB) 4 Mg Tab, 2 MG PO DAILY, TAB 06/18/17 Gabapentin (GABAPENTIN) 300 Mg Capsule, 300 MG PO BID, CAPSULE 06/18/17 Loperamide HCl (Imodium A-D) 2 Mg Capsule Take 4 mg with first watery stool; then take 2 mg every 2 hours during the day and 4 mg every 4 hours at night until no bowel movement 04/30/17 Sumatriptan Succinate (IMITREX) 25 Mg Tablet, 25 MG PO ONCE Y for MIGRAINE 04/30/17 Doxylamine Succinate (UNISOM SLEEP AID) 25 Mg Tablet, 25 MG PO HS Y for INSOMNIA 04/30/17 Diazepam (VALIUM) 5 Mg Tablet, 5 MG PO QHS Y for INSOMNIA, #5 TAB 04/30/17 Lorazepam (ATIVAN) 0.5 Mg Tablet, 0.5 MG PO Q4-6H Y for NAUSEA 04/30/17 Ondansetron Hcl (ZOFRAN) 4 Mg Tablet, 4 MG PO Q8H Y for NAUSEA, TAB 04/30/17 Prochlorperazine Maleate (Compazine) 10 Mg Tablet, 10 MG PO Q6H Y for NAUSEA 04/30/17 Review of Systems Constitution: Positive for Appetite/Weight Change (mild improvement), Denies Fever/Chills/Sweating, Denies Recent Infection, Denies Other HEENT: No EARS: Tinnitus, No NOSE: Nasal Discharge, No THROAT: Sore Throat, No EYES: Dipolpia, No EARS: Hearing Problems, No NOSE: Epistaxis, No THROAT: Mouth Ulcers, No EYES: Vision Change, No OTHER Respiratory: No Cough, No Expectoration, No Hemoptysis, No Shortness of Breath , No OTHER Cardiovascular: No Chest Pain, No Orthopnea, No Edema, No Palpitations, No OTHER Gastrointestinal: No Nausea, No Vomitting, No Diarrehea, No Constipation, No Heart Burn, No Swallowing Difficulties, No Abdominal Pain, No Other Gentiourinary: No Hematuria, No Dysuria, No Nocturia, No Other Musculoskeletal: Muscle Pain, Joint Pain, Bone Pain, Other Hematological: No Bleeding, Weakness, No Enlarged Lyph Nodes, No Bruising, No Fatigue, No Other Skin: Skin Rash Psychiatric: Anxiety, No Depression, Other Vital Signs Vital Signs Temperature: 97.3 Pulse: 95 BP Systolic: 141 BP Diastolic: 95 Respiratory Rate: 16 O2 SAT: 99 O2 Delivery: Height (feet) Height (inches) 67.40 Weight lb: 150 Weight oz: Weight Kg (Molina): [id number] Pain: 6 Physical Exam General: Looks Stable HEENT: HEAD:Atraumatic Neck: Supple Lungs: Clear to Auscultation, Percussion Bilaterally Heart: Regular Rate and Rhythm Abdomen: Soft and Nontender, Other (cva tenderness) Extremities: No Cyanosis, No Clubbing, No Edema, No Other Lymphatics: No Peripheral Lymphadenopathy, No Other Psychiatric: Mood appears normal, Affect appears normal Skin: Skin Rashes (mild), No Bruising, No Purpura, No Moist Desquamation, No Dry Desquamation, No Errythema, No Mild Errythema, No Moderate Errythema, No Severe Errythema, No Induration, No Other Breast: No No Masses, No No Nipple Discharge, No No Skin Changes, No Other Assessment and Plan Assessment and Plan Ms. Flavia Vazquez is a 32 year old woman who has Appendiceal adenocarcinoma, peritoneal carcinomatosis, Dx: September 06, 2016. T. Bili today is 2.7 Appendiceal adenocarcinoma, peritoneal carcinomatosis PLAN - CT spine, chest/abdomen/ pelvis with contrast. Possible spinal cord compression in the setting of malignancy, with uncharacteristic presentation. Patient reports pain above level 7-8 on a scale ( 0-10) that travels throughout the spine to the left shoulder, to lower spine to the hip area, and this pain radiates down to the lower extremities, pain worsens while standing up, and pain is alleviated by laying down. She denies loss sensation and no loss of bowel or bladder control. patient is able to ambulate for short period of time. - Pain Management consultation specialist to consider Morphine ceiling or a Pain pump. We are arranging for Appointment with Dr. Ze Dye and his team at [facility] clinic in the cancer center. 08/12/2017 PAIN: oxycontin 40mg PO q Bedtime, and 30 mg PO at 8Am. , and oxycodone 5mg PO for breakthrough pain at 6Pm; Gapapentin 300mg PO BID 08/15/2017 PAIN: oxycontin 40mg PO q Bedtime, and 30 mg PO at 8Am. , and oxycodone 5mg PO for breakthrough pain at 1pm and 6Pm; Gapapentin 300mg PO BID. today we recommended adding a 5mg PO oxycontin to the 1Pm break though dose, while patients gets to pain management appointment. - Constipation Patient to have a bowel regimen with colace, senokot, miralax, daily, to hold stool softners if more than 2-3 BMs per day. -Consider another dose of radiation therapy - Monitor target T. Bili to 2.0 or less - patient will need Biopsy and MRI for Dr. Carrasco trials -patient may apply OTC benadryl lotion to skin itchiness area. -patient to continue with her pain and nausea management regimen. - HgbA1c lab pending due to elevated gucose today. - Patient to continue to communicate with [facility] clinical trials center for update on work up and requirements. - - Patient to contact clinic with clinical trials update , and with any concerns. CLINICAL TRIALS UPDATE 1.[facility] Patient and mother informed me that they did not meet criteria, as T. Bili remains elevated at above 2.0 2. [facility] [place] Dr. Carrasco at the [facility] in [place], patient has been in touch with Center and she will need to have an MRI, and a Biopsy in order to be entered in the [facility] in [place]. For which She is currently second on the waiting list. DIAGNOSIS BILIARI OBSTRUCTION S/p ERCP on close monitoring of T.BILI . She reports mild improvement on appetite, mild improvement on severity of nausea, and less yellow skin tone. -Cancer related pain. Patient on -Suportive measures as of 07/21/2017 and medication reconciliation done today PAIN: oxycontin 40mg PO q Bedtime, and 30 mg PO at 8Am. , and oxycodone 5mg PO for breakthrough pain at 1Pm and 6Pm; Gapapentin 300mg PO BID. patient still has pain control meds until august 19 2017 aproximately. NAUSEA: Zofran 4mg PO Daily. RX refill for 90 pills given today. -Cancer induced nausea- controlled with Zofran. Reports Compazine makes her tired -SKIN RASH/ITCHINESS- on Benadryl PO, instructed to get Benadryl OTC lotion and apply to affected skin areas. -HYPERGLYCEMIA revealed by Random Blood glucose of 239, and Finger stick of 195. Patient's mother was diagnosed with type 1 diabetes mellitus at 29 years old . A1c lab ordered today. -HISTORY OF ASCITES Paracentesis x1 prior to initiation of FOlfox chemo in fall. She reports having a sensation of her hips and partially abdomen sense of pooling. On physical exam there seem to be fluid accumulation on bilateral sacrum. TIME SPENT: 45 minutes > 40 minutes includes but not limited to discussion, counselling and co-ordination~ of care. Discussion with other health care providers, record review, review of lab work, diagnostic tests. Plan discussed extensively with patient. All the questions answered today. Thank you for the opportunity to be involved in the care of George Crocker Billing Level: Return visit 5 CC Copies to: ANSLEY CURRY MD-ELLIE MONSALVE, ONC Aug 15, 2017 17:33
--- NOTE | 2017-08-18 16:00 | RADIOLOGY IMAGING REPORT ---
FACILITY: [facility] PATIENT NAME: George Alejnadro : 1985 MR: [id number] V: [id number] EXAM DATE: ORDERING PHYSICIAN: ANSLEY CURRY TECHNOLOGIST: [place] [facility] [place] George Alejandro : 1985 Visit/Account:[id number] Date of Sevice: 08/15/2017 CHEST/AB/PELV W/CONTRAST History: Widely metastatic disease related to appendiceal carcinoma. TECHNIQUE: Contiguous axial images were performed through the chest to the level of the adrenal gla nds following the administration of IV contrast. Coronal and sagittal reformatting was also perform ed. One of the following dose optimization techniques was utilized in the performance of this exam: Automated exposure control; adjustment of the mA and/or kV according to the patient's size; or use of an iterative reconstruction technique. Specific details can be referenced in the facility's radiol ogy CT exam operational policy. Contrast: 100 mL Isovue-370 COMPARISON STUDIES: Comparison CT scan 07/11/2017. Lungs / Pleura: There are numerous pulmonary nodules most only measuring several millimeters in adarsh meter. Most demonstrate subtle interval progression. There are several larger nodules which are wilfredo surable. A right middle lobe nodule seen axial image 44 series 2 previously measured 7 x 4 mm now me asures 9 x 6 mm. A right lower lobe pulmonary nodule (image 63) previous study measuring 7 x 5 mm di ameter measures 7 x 7 mm. In the left upper lobe a nodule previously measuring 3 mm diameter now wilfredo sures 5 mm diameter (image 26). Mediastinum/nodes: negative. Heart and vessels: negative. Musculoskeletal / Body wall: There is a new 4 mm diameter sclerotic lesion seen in the T6 vertebral body (image 36). Osseous structures otherwise unremarkable. Abdomen/pelvis: Hepatobiliary: Previous study demonstrated several subcentimeter liver lesions. There is now approx imately 100 hypodense liver lesions with largest measuring up to 1.6 cm diameter consist with rapidly progressive hepatic metastasis. Interval placement of a biliary stent with pneumobilia noted. Aaron te cholecystectomy. Spleen: Remote splenectomy unchanged. Adrenals: Negative. Pancreas: Negative. Kidneys ureters or bladder: Negative. Genitalia: Remote hysterectomy. GI: Again seen is evidence of multi site GI surgery with suture material in several places in the fan wel. Consistent with history of been no resection of the appendix and probably distal portion of the cecum. Prominent colonic fecal material noted throughout the length of the colon. Vessels/spaces/nodes: Negative. Bones/soft tissues: There is a lesion in the superior body of L2 unchanged in size and appearance. There is far more extensive metastatic disease to the lumbar spine and pelvis as evidenced by previou s MRI of the lumbar spine on 06/13/2017 most of these lesions are not visible on CT. Additional findings: None pertinent. IMPRESSION: Interval placement of a biliary stent with associated pneumobilia Rapidly progressive hepatic metastatic disease and less vigorous progressive pulmonary metastasis. P atient has widespread osseous metastasis best appreciated on the previous MRI. Most are not visible on CT although a new sclerotic lesion at T6 is noted. Colonic fecal retention. Remote cholecystectomy, splenectomy, and hysterectomy and multisite bowel surgery. . Report Dictated By: Kaushal Martin MD at 08/18/2017 3:18 PM Report E-Signed By: Kaushal Martin MD at 08/18/2017 3:56 PM WSN:[email or web address]
--- NOTE | 2017-08-21 04:39 | TOBIN CONSULT ---
EVENT DATE: August 19, 2017 REASON FOR CONSULTATION Metastatic appendiceal carcinoma with symptomatic bone metastasis. Patient presenting with persistent left scapular pain, mid thoracic bone pain and lower lumbar bone pain, unrelieved with narcotic analgesics. HISTORY OF PRESENT ILLNESS This is my first encounter with this pleasant lady. She has been seen by Dr. Schmidt in the practice with previous treatment to her L spine of 20 Gy in 5 fractions. The patient presently is experiencing severe pain x six to eight weeks over the left scapula, which is persistent. She also has pain in the mid T spine, which she rates as an 8 on a scale of 1-10. She also has pain in the lower lumbar spine, which she also rates as a 7 to 8. The patient has difficulty with finding a comfortable position for sleep due to the shoulder pain. The pain is not relieved with OxyContin 40 mg q.a.m. and 20 mg q.p.m. with 5-10 mg used once a day for breakthrough pain. The patient has tried Lyrica in the past with no significant benefit. She is not taking any NSAIDs at this time. She does have an appointment with the pain specialist in [place] later today, which was arranged by DELANEY, who saw her last week. Prior to this appointment, the patient did have a CT scan of the chest, abdomen and pelvis as well as the C spine. That study was dated August 15, 2017. The study reveals tumor involvement of L2 as well as T6. Initially nothing was called on the left scapula, however, I personally went up to radiology and reviewed the images with the the radiologist, and we did confirm she has sclerosis of the mid and lower portion of the scapula consistent with metastatic disease. The patient's tumor actually shows up significantly better on MRI scan. She previously had an MRI scan of the lumbar spine which quite clearly demonstrated the extent of the tumor deposits. However, that study will need to be updated with a new MRI scan of the thoracic and lumbar spine, in my opinion. I have requested the studies in the next 48 hours. The patient's history is notable for the diagnosis of right colon/appendiceal adenocarcinoma which was diagnosed in August 2016. The patient presented with ascites and complex pelvic mass. She underwent right colon excision and excision of tumor along the pelvic floor as well as total omentectomy and right salpingo-oophorectomy on September 12, 2016. That was performed by Dr. Tino Yepez at [facility]. Final pathology revealed a mucinous carcinoma with focal signet ring cell features and LVI. Tumor appeared to be arising from the appendiceal orifice and was extensively involving the right colon. 6 of 17 lymph nodes were positive for carcinoma. Patient went on to receive FOLFOX chemotherapy program last December four cycles. She unfortunately had progression of disease and is known to have small volume tumor in her liver as well as her lungs. She underwent additional surgery in late December for intraperitoneal chemotherapy with mitomycin C. She unfortunately developed abdominal abscess in February of 2017, which was treated with drain and antibiotics. Patient has also been treated with irinotecan and Avastin under the direction of Dr. Posey in consultation with Dr. Nas Carrasco at the [facility]. Dr. Carrasco is assisting the patient with possible enrollment in a clinical trial shortly. The patient is seen for initial assessment. On review of the CT of the thorax and abdomen, the largest tumor nodules in the lungs are 9 mm. There appears to be multiple liver lesions which measure up to 1.6 cm in diameter. Liver lesions have shown progression since the prior studies obtained 6-8 weeks earlier. Most recent blood work revealed metabolic panel on August 11, 2017 with an elevation of the ALT at 291, AST of 147, total bilirubin of 2.7. Alkaline phosphatase is elevated at 416. The bilirubin has dropped from 5.7 on August 04, 2017 after biliary stent was placed. Bone lesions are poorly defined by the CT scan, however. Patient denies any radicular component of the pain. Minor constipation, for which she is taking several [id number] laxatives. MEDICATIONS 1. OxyContin 20 mg q.a.m., 40 mg nightly. 2. Oxycodone 5 mg one to two q.4 hours p.r.n. breakthrough pain. 3. Gabapentin 300 mg b.i.d. 4. Compazine p.r.n. 5. Zofran p.r.n. PAST MEDICAL HISTORY Appendiceal carcinoma with presentation of abdominal carcinomatosis, subsequent development of pulmonary, hepatic and bone metastasis. Prior colostomy with reversal March 2017. Remote tonsillectomy. Prior biliary stent placement. FAMILY HISTORY Type 2 diabetes in patient's mother at age 52, father had hypertension, age 56 as well as a history of depression. 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 She is single with no children. Nonsmoker. REVIEW OF SYSTEMS Comprehensive review of systems notable for pain as listed in the HPI. Weight is stable. PHYSICAL EXAMINATION GENERAL: Pleasant 32-year-old female, moderate distress due to left scapular pain, but otherwise alert. VITALS: BP is 130/85, pulse 97, O2 sat 96%. LUNGS: Clear bilaterally. LYMPHATIC: No peripheral lymphadenopathy. ABDOMEN: Soft, active bowel sounds. EXTREMITIES: No edema or cyanosis. NEUROLOGICAL: Intact. MUSCULOSKELETAL: Pain is elicited on light percussion over the left mid scapula. Pain is also reproduced with light percussion over the mid thoracic spine and lower lumbar spine. Patient is also intermittently symptomatic over the sternum. IMPRESSION This is delightful 32-year-old female who unfortunately was diagnosed a year ago with metastatic mucinous adenocarcinoma, which appeared to arise from the appendix. Patient has undergone several surgeries as well as at least two chemotherapy programs, first with FOLFOX, and subsequently with an Avastin/ irinotecan program. She is presently awaiting the opening of a clinical trail at the [facility] directed by Dr. Carrasco. She is underwent medical oncology management locally with Dr. Posey. Dr. Schmidt previously treated the patient at our center to 20 Gy and 5 fractions. That field was delivered in the first week of July 2017. The lumbar spine was treated concurrently to 20 Gy and 5 fractions. That field also included the upper portion of the sacrum. She initially had good treatment effect, but pain unfortunately is back and persistent and not presently responding to moderate dose of narcotic analgesics. PLAN The patient will see a pain specialist later this afternoon in [place] for further advice on altering her pain medications. (done, improved pain with fentanyl patch and more freqeunt prn dosing of her breakthrough medications; still unable to sit for very long or stand due to back pain however ...mid thoracic, lumbar, and sacral). I would advise the patient to undergo an MRI scan of the thoracic and lumbar spine. I should be able to selectively treat multiple bone lesions concurrently for symptom control. I think it would be worthwhile retreating the left scapula, and I would lower the daily radiation dose to 2 Gy per fraction and proceed to 30 Gy. Treatment will be completed over a time frame of three weeks. I am also considering a PET CT scan, which would also be useful to clearly define the location of the patient's tumor. Cancer did not appear to be overly active on technetium standard bone scan, which was performed July 14, 2017. All radiographic studies were reviewed on the computer with the patient, and I also personally reviewed the films with the radiologist over the noon hour. Treatment will start within five to seven days, as soon as the treatment planning process is completed. All questions were answered to the patient's satisfaction as well as her family's, and signed consent was obtained for treatment today. [facility]
[2017-08-28 11:08] VITALS: BP 135/88
--- NOTE | 2017-08-28 20:17 | ONCOLOGY FOLLOW UP NOTE ---
EVENT DATE: August 28, 2017 REASON FOR FOLLOWUP Appendiceal adenocarcinoma, widely metastatic. INTERIM HISTORY George returns to clinic for a followup visit today. She is accompanied by her mother. She has in the interim been seen at the outpatient palliative care clinic at the [facility] in [place]. Changes have been made to her pain medication regimen. She is now on gabapentin 300 mg p.o. t.i.d., and she is also on the fentanyl patch at a dose of 500 mcg q.72 hours. With these changes, her pain has come under better control, but she is still going to the medicine cabinet for oxycodone regularly every four hours. She is at times having to wake up at night to take medicine as well. She reports that constipation is pretty well managed. She does on occasion have nausea, but Zofran is helpful for this. She denies fever. She is currently undergoing palliative radiation with Dr. Smith. She is now off dexamethasone. She has been in touch with providers at the [facility] and the [facility]. REVIEW OF SYSTEMS Positive for fatigue, nausea, constipation, back pain, bilateral shoulder pain, and somnolence at times with pain medication. ONCOLOGY HISTORY 1. Appendiceal adenocarcinoma. a. Initial presentation on September 03, 2016 with a six-week history of abdominal discomfort, bloating, distention, lack of appetite, and loose stools. b. On September 06, 2016, CT scan of abdomen and pelvis shows a 12 x 15 x 21 cm complex low attenuation mass within the low anterior abdomen and pelvis, and 5 x 7 x 6 cm mass in the posterior midline pelvis; associated with moderately large volume of ascites and left upper quadrant omental caking. 2. Patient is referred to Dr. Yepez at [facility]. a. September 12, 2016: Patient undergoes radical carcinoma debulking per right salpingo-oophorectomy and left ovarian cystectomy, large bowel tumor excision and excision of pelvic floor tumor including aortic bifurcation tumor nodule, total omentectomy, right hemicolectomy, exploratory laparotomy, and lysis of adhesions. b. 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 Biopsy of the tumor nodule at the aortic bifurcation was also positive for metastatic adenocarcinoma. Omentum was involved with metastatic adenocarcinoma. The right hemicolectomy specimen, including appendix, showed evidence of invasive poorly differentiated adenocarcinoma arising from the appendiceal orifice and showing full-thickness invasion of the bowel wall with involvement of cirrhosis. Six of 17 lymph nodes positive for metastatic adenocarcinoma. c. October 11, 2016: CT chest, abdomen and pelvis shows no evidence for metastatic disease above the diaphragm. Postoperative changes were noted from midline laparotomy and appendectomy. No evidence of postoperative complication , bowel obstruction, or bowel leak. Large volume ascites with omental thickening and peritoneal carcinomatosis was noted. Complexity of ascites was diminished, presumably from debulking. Findings potentially consistent with pseudomyxoma peritonei. d. October 30 through December 11, 2016: FOLFOX times four cycles. e. December 16, 2016, CT of chest, abdomen and pelvis: Multiseptate cystic lesion in the pelvis, increased in size since prior exam. Large volume complex ascites and omental thickening/caking otherwise unchanged. Apparent wall thickening of the terminal ileum. Borderline prominent left axillary lymph node , unchanged. Scattered pulmonary micronodules measuring up to 2-3 mm, present prior and unchanged. f. January 06, 2017: Patient undergoes diagnostic laparoscopy, exploratory laparotomy, lysis of adhesions, radical abdominal tumor debulking (including splenectomy, cholecystectomy, wedge gastrectomy, partial resection of right diaphragm, multiple hepatic capsulectomies, mobilization of splenic flexure, segmental resection of splenic flexure of colon, low anterior resection, total abdominal hysterectomy with left salpingo-oophorectomy, bilateral ureterolysis, placement of peritoneal catheters for intraperitoneal chemotherapy). Patient receives hyperthermic intraperitoneal and right intrathoracic chemotherapy with mitomycin C. She undergoes primary coloproctostomy, primary colocolostomy, and diverting loop ileostomy. Pathology reveals evidence of mucinous adenocarcinoma involving all specimens including multiple peritonectomies, left external iliac lymph node and right external iliac lymph node. g. February 19, 2017: Patient is admitted for intraabdominal abscess, status post drain placement and antibiotics. She was subsequently discharged. h. March 04, 2017: Patient undergoes ileostomy takedown. i. CT scan of the chest, abdomen and pelvis on April 10, 2017 reveals numerous micronodules throughout the lungs. Many of these appear unchanged, but there has been development of several new micronodules, measuring up to 5 mm. Surgical resection of the distal colon and hysterectomy are noted. There were several minimally prominent mesenteric lymph nodes in the right lower quadrant that were slightly increased compared to prior. There was also initial development of mild to moderate bilateral hydronephrosis and hydroureters. There was an irregular thickening of the bladder wall and indentation of the posterior wall, which was thought potentially to be postoperative in nature, as well as air and fluid collection just anterior to the bladder measuring approximately 3.2 x 2.2 cm. j. Status post palliative irinotecan and Avastin, stopped due to progression. k. Patient is receiving palliative radiation therapy for pain control, meanwhile assessing for the possibility of clinical trial at [facility] versus [facility]. PAST MEDICAL HISTORY 1. Appendiceal adenocarcinoma, as above. 2. Depression, diagnosed in April of 2016. SOCIAL HISTORY She drinks only occasional alcohol. She has never smoked cigarettes. There is no history of illicit drug use. 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 CURRENT MEDICATIONS 1. Oxycodone 10 mg p.o. q.4 hours p.r.n. 2. Colace p.r.n. 3. Gabapentin 300 mg p.o. t.i.d. 4. Imitrex p.r.n. 5. Unisom p.r.n. 6. Valium p.r.n. 7. Ativan p.r.n. 8. Zofran p.r.n. 9. Ibuprofen p.r.n. 10. Fentanyl patch 50 mcg every 72 hours. ALLERGIES No known drug allergies. VITAL SIGNS Temperature 98.2, blood pressure 135/88, heart rate is 101, respirations 16, oxygen saturation is 96% on room air. PHYSICAL EXAMINATION GENERAL: Patient is alert and oriented times three, in no apparent distress, sitting in the exam room chair. She appears tired, but not in distress. HEENT: Exam reveals anicteric sclerae. NEUROLOGIC: Exam is grossly nonfocal. Though her gait is somewhat slow, it is stable. SKIN: Exam reveals no concerning rash or lesion. LABORATORY STUDIES AND IMAGING [facility] and [facility] medical records. August 25 MRI of the lumbar spine reveals extensive bone metastases that have increased since the prior exam as well as mild disk bulge eccentric to the right at L4-L5, causing mild right foraminal stenosis. There is no significant spinal stenosis. Thoracic MRI reveals similar findings with extensive metastatic disease involving visualized bones, lungs, and liver. There is no extraosseous or epidural tumor extension, and no acute fractures. Neck MRI performed on August 15 reveals no evidence of metastatic disease to the neck. ASSESSMENT AND PLAN Widely metastatic appendiceal adenocarcinoma. I visited with George and her mother today, and we caught up on recent events. We discussed her imaging results as well as her labs. She has visited with the outpatient palliative care clinic at the [facility] in [place]. Her pain does seem to be under better control with the fentanyl patch, but she is still using quite a bit of the p.r.n. oxycodone. I do think it would be fine for her to move up to 75 mcg of Duragesic every 72 hours. She would like for me to touch base with palliative care in [place], and I would be more than happy to do this. Nausea is controlled, and constipation is controlled. She is currently undergoing palliative radiation with Dr. Smith. We discussed her recent labs. Her bilirubin has normalized. She was happy to see this. She is off dexamethasone. We believe that there is between a two- to four-week washout period after her radiation therapy completes if she is going to enroll in a clinical trial at the [facility] or at [facility]. As discussed, we will be her for symptom management or any other concerns if she needs and that I would want to her follow up here in the next few weeks to make sure that symptom management is reasonable. I will also be in touch with Dr. Carrasco at the [facility] regarding her trial eligibility. MTDD
[2017-09-03 14:33] VITALS: BP 140/99
[2017-09-03] MEDS: LIDOCAINE/SOD BICARB 8.4% SYR ID PRN (14:35)
[2017-09-03] MEDS: HEPARIN FLSH (PORT) 500 UN/5ML IVP PRN (14:35)
[2017-09-03 14:49] LABS: PLATELET COUNT, AUTOMATED 444 K/uL (150-450)
[2017-09-04 14:35] VITALS: BP 139/94
[2017-09-04] MEDS: HEPARIN FLSH (PORT) 500 UN/5ML IVP PRN (14:46)
[2017-09-04] MEDS: LIDOCAINE/SOD BICARB 8.4% SYR ID PRN (14:46)
[2017-09-04 16:07] VITALS: BP 133/87
[~2017-09-10 15:03] MED LIST changes: +ALTEPLASE RECOMB 2 MG VIAL IVP PRN; +CBD; +DEXTROSE 5%(*) 100 ML BAG 100 ML IVPB PRN; +FENT1PAT40 TD; +HALO5AMP5 IJ; +IBUP400T13 PO; +IOPAMIDOL 76% 100 ML INFUS BTL 100 ML ONE; +NS(*) 0.9% 100 ML BAG 100 ML IVPB PRN; +NS(*) 0.9% 1000 ML BAG 1,000 ML IV ONE; +NS(*) 0.9% 1000 ML BAG 1,000 ML IV PRN; +NS(*) 0.9% 500 ML BAG 500 ML IV PRN; +ONDANSETRON 4 MG/2 ML VIAL IVP ONE; +WATER FOR INJ,STERILE 20 ML IVP PRN
[2017-09-10 15:53] VITALS: BP 128/89
--- NOTE | 2017-09-11 04:36 | ONCOLOGY FOLLOW UP NOTE ---
EVENT DATE: September 10, 2017 REASON FOR FOLLOWUP Appendiceal adenocarcinoma, widely metastatic. INTERIM HISTORY George returns to clinic for a followup visit today. She is accompanied by multiple family members. Today's visit took place in the education room, to allow accommodation for multiple people. To review, George has continued with palliative radiation therapy, and her pain control has come under much better control as a result, as well as ongoing use of the fentanyl patch. George unfortunately has become much more weak and tired over time. She feels that her legs have became weak and heavy, and that she is no longer able to walk on her own. She has been eating, but she reports rather frequent nausea that has been pretty difficult to control at home. She has been talking with her family extensively, and at this point she does not feel that she can tolerate the trip back and forth to [place] for any type of clinic trial. She and her family are here to discuss continuation of radiation therapy versus moving purely to hospice care, likely to take place at home. REVIEW OF SYSTEMS Positive for fatigue, weakness, diffuse musculoskeletal pain, nausea, vomiting, and difficulty sleeping. ONCOLOGY HISTORY 1. Appendiceal adenocarcinoma. a. Initial presentation on September 03, 2016 with a six-week history of abdominal discomfort, bloating, distention, lack of appetite, and loose stools. b. On September 06, 2016, CT scan of abdomen and pelvis shows a 12 x 15 x 21 cm complex low attenuation mass within the low anterior abdomen and pelvis, and 5 x 7 x 6 cm mass in the posterior midline pelvis; associated with moderately large volume of ascites and left upper quadrant omental caking. 2. Patient is referred to Dr. Yepez at [facility]. a. September 12, 2016: Patient undergoes radical carcinoma debulking per right salpingo-oophorectomy and left ovarian cystectomy, large bowel tumor excision and excision of pelvic floor tumor including aortic bifurcation tumor nodule, total omentectomy, right hemicolectomy, exploratory laparotomy, and lysis of adhesions. b. 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 Biopsy of the tumor nodule at the aortic bifurcation was also positive for metastatic adenocarcinoma. Omentum was involved with metastatic adenocarcinoma. The right hemicolectomy specimen, including appendix, showed evidence of invasive poorly differentiated adenocarcinoma arising from the appendiceal orifice and showing full-thickness invasion of the bowel wall with involvement of cirrhosis. Six of 17 lymph nodes positive for metastatic adenocarcinoma. c. October 11, 2016: CT chest, abdomen and pelvis shows no evidence for metastatic disease above the diaphragm. Postoperative changes were noted from midline laparotomy and appendectomy. No evidence of postoperative complication , bowel obstruction, or bowel leak. Large volume ascites with omental thickening and peritoneal carcinomatosis was noted. Complexity of ascites was diminished, presumably from debulking. Findings potentially consistent with pseudomyxoma peritonei. d. October 30 through December 11, 2016: FOLFOX times four cycles. e. December 16, 2016, CT of chest, abdomen and pelvis: Multiseptate cystic lesion in the pelvis, increased in size since prior exam. Large volume complex ascites and omental thickening/caking otherwise unchanged. Apparent wall thickening of the terminal ileum. Borderline prominent left axillary lymph node , unchanged. Scattered pulmonary micronodules measuring up to 2-3 mm, present prior and unchanged. f. January 06, 2017: Patient undergoes diagnostic laparoscopy, exploratory laparotomy, lysis of adhesions, radical abdominal tumor debulking (including splenectomy, cholecystectomy, wedge gastrectomy, partial resection of right diaphragm, multiple hepatic capsulectomies, mobilization of splenic flexure, segmental resection of splenic flexure of colon, low anterior resection, total abdominal hysterectomy with left salpingo-oophorectomy, bilateral ureterolysis, placement of peritoneal catheters for intraperitoneal chemotherapy). Patient receives hyperthermic intraperitoneal and right intrathoracic chemotherapy with mitomycin C. She undergoes primary coloproctostomy, primary colocolostomy, and diverting loop ileostomy. Pathology reveals evidence of mucinous adenocarcinoma involving all specimens including multiple peritonectomies, left external iliac lymph node and right external iliac lymph node. g. February 19, 2017: Patient is admitted for intraabdominal abscess, status post drain placement and antibiotics. She was subsequently discharged. h. March 04, 2017: Patient undergoes ileostomy takedown. i. CT scan of the chest, abdomen and pelvis on April 10, 2017 reveals numerous micronodules throughout the lungs. Many of these appear unchanged, but there has been development of several new micronodules, measuring up to 5 mm. Surgical resection of the distal colon and hysterectomy are noted. There were several minimally prominent mesenteric lymph nodes in the right lower quadrant that were slightly increased compared to prior. There was also initial development of mild to moderate bilateral hydronephrosis and hydroureters. There was an irregular thickening of the bladder wall and indentation of the posterior wall, which was thought potentially to be postoperative in nature, as well as air and fluid collection just anterior to the bladder measuring approximately 3.2 x 2.2 cm. j. Status post palliative irinotecan and Avastin, stopped due to progression. k. Patient is receiving palliative radiation therapy for pain control, meanwhile assessing for the possibility of clinical trial at [facility] versus [facility]. PAST MEDICAL HISTORY 1. Appendiceal adenocarcinoma, as above. 2. Depression, diagnosed in April of 2016. SOCIAL HISTORY She drinks only occasional alcohol. She has never smoked cigarettes. There is no history of illicit drug use. 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 CURRENT MEDICATIONS 1. Oxycodone 10 mg p.o. q.4 hours p.r.n. 2. Colace p.r.n. 3. Gabapentin 300 mg p.o. t.i.d. 4. Imitrex p.r.n. 5. Unisom p.r.n. 6. Valium p.r.n. 7. Ativan p.r.n. 8. Zofran p.r.n. 9. Ibuprofen p.r.n. 10. Fentanyl patch 62 mcg every 72 hours. ALLERGIES No known drug allergies. VITAL SIGNS Temperature 97.3, blood pressure 128/89, heart rate is 121, respirations 16, oxygen saturation is 92% on room air. Weight is 66.1 kg. PHYSICAL EXAMINATION GENERAL: Patient is alert and oriented times three, in no apparent distress, sitting in the exam room chair. She appears thin, tired and chronically ill. HEENT: Anicteric sclerae with dry mucous membranes. NEUROLOGIC: Bilateral lower extremity weakness and generalized weakness. SKIN: Reveals no concerning rash or lesion. Skin is pale. EXTREMITIES: Edema of the bilateral lower extremities, but no erythema or tenderness to palpation. LABORATORY DATA AND IMAGING Laboratory studies and imaging are reviewed per the [facility] and [facility] records. ASSESSMENT AND PLAN Metastatic appendiceal adenocarcinoma. I had a lengthy and in-depth visit with George and her family today. We were accompanied by Jannet Lehman RN, as well as Martha Bah, nurse practitioner. George is having more and more symptoms from her advanced appendiceal adenocarcinoma, and at this point her performance status has faded to the point where I do not think that she would be eligible for a clinical trial. When discussed today, George reports that she does not think she would be able to tolerate the drive back and forth to [place] even once. She has become extraordinarily weak, particularly in the lower extremities. Fortunately, her pain has come under better control with ongoing palliative radiation, as well as the use of the fentanyl patch. We spent a great deal of time today discussing hospice care, and the services that they provide, either at home or in facility. We also discussed the merits of ongoing radiation therapy, and that it would be unlikely that she could start hospice care if she were undergoing radiation. This will be looked into further. George is in favor of continuing with radiation, as she feels that it has been quite helpful. I would certainly support this. I will refill her Duragesic patch today as well as her gabapentin. I would be more than happy to visit with her in the future, and I have offered a home visit if this would be desirable by the patient and her family members. George and her family had several further insightful and appropriate questions for us today, and I believe we answered all of their questions to their satisfaction. We spent a total of 30 minutes of time face to face with the patient and her family members today, and 25 minutes of this was spent in direct counseling and coordination of care. [facility]
[2017-09-12] MEDS ORDERED: MORP100S32 PO ×2 (15:34→16:14)
[2017-09-12] MEDS ORDERED: ONDA4TAB PO ×2 (15:34→16:14)
[2017-09-12] MEDS ORDERED: HYOS0.1225 PO ×2 (15:34→16:14)
[2017-09-12] MEDS ORDERED: LORA-1455 PO ×2 (15:34→16:14)
[2017-09-12] MEDS ORDERED: PROM50VI IM (16:52)
== END 2017-09-11 14:42 | disposition home or self-care (01) ==
LOC: ONC 15:03
PROVIDERS: ATTEND Internal Medicine Medical Oncology
DX: Z00.6 Encounter for examination for normal comparison and control in clinical research program (principal); C18.1 Malignant neoplasm of appendix; R91.8 Other nonspecific abnormal finding of lung field; R93.2 Abnormal findings on diagnostic imaging of liver and biliary tract; N13.30 Unspecified hydronephrosis; Z79.899 Other long term (current) drug therapy; R73.9 Hyperglycemia, unspecified; C78.7 Secondary malignant neoplasm of liver and intrahepatic bile duct; C78.00 Secondary malignant neoplasm of unspecified lung; M53.86 Other specified dorsopathies, lumbar region; M53.84 Other specified dorsopathies, thoracic region; M89.8X0 Other specified disorders of bone, multiple sites; R11.0 Nausea
CPT/HCPCS: 36415; 36416; 36591; 71260; 72126; 74177; 82247; 82248; 82948; 83010; 83615; 83735; 85025; 85045; 85049; 85379; 85384; 85610; 85730; 96360; 96361; 96374; J1642; J2405; J7030; Q9967; 77280; 77295; 77300; 77334; 77412; 82040; 82310; 82374; 82435; 82565; 82947; 84075; 84132; 84155; 84295; 84450; 84460; 84520; 99212

== ENCOUNTER 2017-09-11 15:00 | Outpatient (RCR) | payer SELFPAY ==
[2017-07-16 15:30] LABS: PLATELET COUNT, AUTOMATED 293 K/uL (150-450)
[2017-08-21] MEDS: HEPARIN FLSH (PORT) 500 UN/5ML IVP PRN (12:33)
[2017-08-21 12:34] VITALS: BP 123/77
--- NOTE | 2017-08-21 13:30 | RADIOLOGY IMAGING REPORT ---
FACILITY: [facility] [place] PATIENT NAME: George Alejandro : 1985 MR: [id number] V: [id number] EXAM DATE: ORDERING PHYSICIAN: YOBANI HEAD TECHNOLOGIST: Location: [facility] Patient: George Alejandro : 1985 Visit/Account:[id number] Date of Sevice: 08/21/2017 EXAMINATION: MRI Thoracic spine MRI without and with intravenous contrast HISTORY: Metastatic appendiceal cancer. COMPARISON: CT of the chest, abdomen, and pelvis dated 07/16/2017. Lumbar spine MRI dated 06/13/2017. TECHNIQUE: Multi-planar, multi-sequence thoracic spine MRI was before and after IV contrast. CONTRAST: 15 mL of IV MultiHance FINDINGS: Alignment: Negative. Vertebral marrow signal: Extensive patchy bone marrow signal abnormality consistent with metastasis, most severe in the mid and lower thoracic spine. There is involvement of the vertebral bodies, doughmaker ior elements, ribs, and scapulae.. No compression fractures. No extraosseous or epidural tumor extens ion. Paravertebral soft tissues: Numerous pulmonary and hepatic metastases. Thoracic cord: Negative. Enhancement: Patchy bone marrow enhancement. Otherwise negative. Disc Spaces: Circumferential disc osteophyte complex at T11-T12 with mild spinal canal stenosis. Sma ll Schmorl's nodes at a few levels. No significant neural foraminal stenosis. IMPRESSION: 1. Extensive metastatic disease involving the visualized bones, lungs, and liver. No extraosseous or epidural tumor extension. No acute fractures. 2. Mild degenerative disc disease in the lower thoracic spine with mild spinal canal stenosis at T11- T12. Report Dictated By: Paulo Bermudez MD at 08/21/2017 12:46 PM Report E-Signed By: Paulo Bermudez MD at 08/21/2017 1:26 PM WSN:[email or web address]
[2017-08-25] MEDS: HEPARIN FLSH (PORT) 500 UN/5ML IVP PRN (11:30)
--- NOTE | 2017-08-25 13:52 | RADIOLOGY IMAGING REPORT ---
[place] [facility] [place]: George Alejandro : 1985 MR: [id number] V: [id number] EXAM DATE: ORDERING PHYSICIAN: YOBANI HEAD TECHNOLOGIST: Location: [facility] Patient: George Alejandro : 1985 Visit/Account:[id number] Date of Sevice: 08/25/2017 EXAMINATION: MRI lumbar spine without IV contrast MRI lumbar spine with IV contrast HISTORY: Metastatic appendiceal carcinoma. Bone pain, evaluate extent of disease for treatment plann ing. COMPARISON: Lumbar spine MRI from 06/13/2017. TECHNIQUE: Multi-planar, multi-sequence lumbar spine MRI was performed before and after IV contrast. CONTRAST: 15 mL of IV MultiHance gadolinium. FINDINGS: Alignment: Normal. Vertebral marrow signal: Extensive T1 hypointense and T2/STIR hyperintense marrow lesions throughout the visualized spine with relative sparing of L5, and to a lesser degree L4. Abnormal signal intensit y in the sacrum bilaterally and the bilateral visualized iliac bones. There has been significant prog ression of marrow signal abnormality since previous exam. Distal thoracic cord: Negative. Conus: negative, terminates at T12-L1. Cauda equina: Negative. Paravertebral soft tissues: Negative. Visualized abdominal and pelvic structures: Negative. Enhancement pattern: There is patchy enhancement of the marrow lesions. No abnormal epidural enhancem ent. Disc spaces: Lower thoracic spine: Normal. L1-2: Normal. L2-3: Normal. L3-4: Normal. L4-5: Mild disc bulge eccentric to the right causing mild right foraminal stenosis, unchanged. No sig nificant central canal stenosis. L5-S1: Normal. IMPRESSION: 1. Extensive bone metastases are increased since previous exam. 2. Mild disc bulge eccentric to the right at L4-5 causing mild right foraminal stenosis. No significa nt spinal stenosis. Report Dictated By: Mandi Schroeder MD at 08/25/2017 1:40 PM Report E-Signed By: Mandi Schroeder MD at 08/25/2017 1:48 PM WSN:[id number]
[~2017-09-11 15:00] MED LIST changes: +GADOBENATE 529MG/1ML 15ML VIAL IVP ONE; -IOPAMIDOL 76% 100 ML INFUS BTL 100 ML ONE; +LIDOCAINE/SOD BICARB 8.4% SYR ID PRN; -NS(*) 0.9% 1000 ML BAG 1,000 ML IV ONE; -NS(*) 0.9% 1000 ML BAG 1,000 ML IV PRN; -ONDANSETRON 4 MG/2 ML VIAL IVP ONE
[2017-09-12] MEDS ORDERED: ONDA4TAB PO ×2 (15:34→16:14)
[2017-09-12] MEDS ORDERED: HYOS0.1225 PO ×2 (15:34→16:14)
[2017-09-12] MEDS ORDERED: MORP100S32 PO ×2 (15:34→16:14)
[2017-09-12] MEDS ORDERED: LORA-1455 PO ×2 (15:34→16:14)
[2017-09-12] MEDS ORDERED: PROM50VI IM (16:52)
[2017-09-22] MEDS ORDERED: LORA-1455 PO (18:12)
[2017-09-22] MEDS ORDERED: MORP100S32 PO (18:12)
== END 2017-09-24 12:30 | disposition expired ==
LOC: RAON 15:00
PROVIDERS: ATTEND Radiology Radiation Oncology
DX: Z51.0 Encounter for antineoplastic radiation therapy (principal); C18.1 Malignant neoplasm of appendix; C79.51 Secondary malignant neoplasm of bone
CPT/HCPCS: 36591; 72157; 72158; 77280; 77290; 77295; 77300; 77334; 77336; 77386; 77412; 77417; 82248; 85025; 99212; A9577; J1642; 82040; 82247; 82310; 82374; 82435; 82565; 82947; 84075; 84132; 84155; 84295; 84450; 84460; 84520